=== PATIENT | female | born 1955 | race African-American/Black ===

== ENCOUNTER → 2016-09-13 | Outpatient (CLI) | payer OTHER | LOC: RAD 09:35 | PROVIDERS: ATTEND Physician Assistant | DX: R94.5 Abnormal results of liver function studies (principal) | CPT/HCPCS: 74160 ==

== ENCOUNTER 2017-02-14 19:20 | Emergency (ER) | payer OTHER ==
[2017-02-14] MEDS ORDERED: OXYCODONE-ACETAMINOPHEN 5-325 MG TABLET PO ONE (21:30)
[2017-02-14] MEDS ORDERED: ONDANSETRON 4 MG TAB.RAPDIS PO ONE (21:30)
--- NOTE | 2017-02-14 21:33 | ER Document Report ---
ED General - General Chief Complaint: Leg Pain Stated Complaint: CRAMPING Time Seen by Provider: 02/14/17 21:23 Notes: Patient is a 61-year-old female that comes emergency department for chief complaint of cramps mainly in her legs but also in her arms and across her body. These are sharp and intermittent, she states that she had a cramp across her body so bad earlier today that she vomited. She is treated for gout, hypertension, she states she has an extensive family history of rheumatologic disorders but only has been diagnosed with gout. She denies any shortness of breath, chest pain, fever. TRAVEL OUTSIDE OF THE [place] IN LAST 30 DAYS: No - Related Data Allergies/Adverse Reactions: No Known Allergies Allergy (Verified 02/14/17 20:54) Past Medical History - General Information source: Patient - Social History Smoking Status: Never Smoker Chew tobacco use (# tins/day): No Frequency of alcohol use: Occasional Drug Abuse: Marijuana Family History: Reviewed & Not Pertinent Patient has suicidal ideation: No Patient has homicidal ideation: No - Past Medical History Cardiac Medical History: Reports: Hx Hypertension Denies: Hx Coronary Artery Disease, Hx Heart Attack Pulmonary Medical History: Denies: Hx Asthma, Hx Bronchitis, Hx COPD, Hx Pneumonia Neurological Medical History: Denies: Hx Cerebrovascular Accident, Hx Seizures Renal/ Medical History: Denies: Hx Peritoneal Dialysis Musculoskeltal Medical History: Reports Hx Arthritis - "all" joints Past Surgical History: Reports: Hx Cholecystectomy - Immunizations Hx Diphtheria, Pertussis, Tetanus Vaccination: Yes Review of Systems - Review of Systems Constitutional: No symptoms reported EENT: No symptoms reported Cardiovascular: No symptoms reported Respiratory: No symptoms reported Gastrointestinal: See HPI Genitourinary: No symptoms reported Female Genitourinary: No symptoms reported Musculoskeletal: See HPI Skin: No symptoms reported Hematologic/Lymphatic: No symptoms reported Neurological/Psychological: No symptoms reported Physical Exam - Vital signs Vitals: Temp Pulse Resp BP Pulse Ox 98.4 F 76 18 138/115 H 100 02/14/17 19:27 02/14/17 19:27 02/14/17 19:27 02/14/17 19:27 02/14/17 19:27 Interpretation: Normal - General General appearance: Alert - Patient appears uncomfortable, shifting on the bed - HEENT Head: Normocephalic, Atraumatic Eyes: Normal Conjunctiva: Normal Extraocular movements intact: Yes Eyelashes: Normal Pupils: PERRL Mouth/Lips: Normal Mucous membranes: Normal Pharynx: Normal Neck: Normal - Respiratory Respiratory status: No respiratory distress Chest status: Nontender Breath sounds: Normal Chest palpation: Normal - Cardiovascular Rhythm: Regular Heart sounds: Normal auscultation Murmur: No - Abdominal Inspection: Normal Distension: No distension Bowel sounds: Normal Tenderness: Tender - Is generalized tenderness of the upper abdomen, slightly worse in the right upper quadrant, no guarding or rebound tenderness Organomegaly: No organomegaly - Back Back: Normal, Nontender - Extremities General upper extremity: Normal inspection, Nontender, Normal ROM, Normal strength General lower extremity: Other - There is some generalized tenderness over the thighs bilaterally, no pain out of proportion, no abnormal heat or erythema to the areas, normal joint range of motion of the lower extremities, normal distal neurovascular exam - Neurological Neuro grossly intact: Yes Cognition: Normal Orientation: AAOx4 Somers Coma Scale Eye Opening: Spontaneous Somers Coma Scale Verbal: Oriented Somers Coma Scale Motor: Obeys Commands Terri Coma Scale Total: 15 Speech: Normal Motor strength normal: LUE, RUE, LLE, RLE Sensory: Normal - Skin Skin Temperature: Warm Skin Moisture: Dry Skin Color: Normal Course - Re-evaluation Re-evalutation: Patient appears mildly uncomfortable on examination, however when I tried to lay her back to examine her she appeared to suddenly have sharp cramps in her mid thigh areas which forced her to stand, bend over the sink, and brought her to tears. This did subside and she was able to get back on the bed. Patient has some tenderness in the upper quadrants, more in the right upper quadrant but with no guarding. CBC shows no leukocytosis, ESR is only slightly elevated, I do not appreciate any specific joints that are inflamed or tender, or exactly of the source of patient's pain spasms. Shows elevated bilirubin and alk phos, ultrasound performed of the abdomen, however this does not show any signs of obstruction or any other acute abnormality. Patient is normal. Patient has slightly elevated LFTs, however she states this is already known and she was already referred for workup of this. Patient was given a copy of her ultrasound and labs. Patient asymptomatic on reevaluation, states she is ready to leave that she needs a work note. No evidence of life-threatening infection or acute abdomen, patient will be discharged with some pain management because of her obvious painful spasms which do respond to the medication, patient advised to get an autoimmune workup and also a follow-up with gastroenterology. I discussed return precautions in detail, patient states understanding and agreement - Vital Signs Vital signs: Temp Pulse Resp BP Pulse Ox 98.0 F 65 16 150/81 H 98 02/15/17 01:57 02/15/17 01:57 02/15/17 01:57 02/15/17 01:57 02/15/17 01:57 - Laboratory Result Diagrams: 02/14/17 22:00 02/14/17 22:00 Laboratory results interpreted by me: 02/14/17 02/14/17 02/14/17 22:00 22:00 22:00 MCV 102 H MCH 33.7 H RDW 16.7 H Plt Count 125 L ESR 72 H Sodium 135.9 L Est GFR (Non-Af Amer) 50 L Glucose 155 H Total Bilirubin 2.4 H Direct Bilirubin 1.2 H AST 120 H Alkaline Phosphatase 308 H Total Protein 9.0 H Urine Urobilinogen 4.0 H Discharge - Discharge Clinical Impression: Extremity pain Qualifiers: Extremity pain location: unspecified extremity Qualified Code(s): M79.609 - Pain in unspecified limb Abdominal pain Qualifiers: Abdominal location: generalized Qualified Code(s): R10.84 - Generalized abdominal pain Condition: Stable Disposition: HOME, SELF-CARE Additional Instructions: You ultrasound shows no acute abnormality. Take your ultrasound copy to your appointment, follow up with gastroenterology. Your ESR is slightly elevated, an inflammatory marker. Because of your symptoms and your family history I recommend an autoimmune workup to be performed. Take the stool softener if you take the pain medicine. Return to the ED for any concerning or worsening symptoms - fever, returned or worsening abdominal pain, swelling of the extremities, redness of the extremities, or any other concerning symptoms. Prescriptions: Docusate Sodium [Colace 100 mg Capsule] 100 mg PO DAILY #30 capsule Oxycodone HCl/Acetaminophen [Percocet 5-325 mg Tablet] 1 - 2 tab PO Q4H PRN #20 tablet PRN Reason: Forms: Return to Work Referrals: JAKE LEDEZMA PA-C [Primary Care Provider] - Follow up as needed
[2017-02-14 22:13] LABS: ABSOLUTE BASOPHILS # (AUTO) 0.1 10^3/uL (0.0-0.2); ABSOLUTE LYMPHOCYTES (AUTO) 1.9 10^3/uL (0.5-4.7); ABSOLUTE MONOCYTES (AUTO) 0.7 10^3/uL (0.1-1.4); ABSOLUTE NEUT (AUTO) 5.9 10^3/uL (1.7-8.2); BASOPHILS % (AUTO) 1.5 % (0-2); EOSINOPHILS % (AUTO) 0.3 % (0-6); HEMATOCRIT 38.2 % (36.0-47.0); HEMOGLOBIN 12.7 g/dL (12.0-15.5); HGB HCT DIFFERENCE -0.1; LYMPHOCYTES % (AUTO) 22.4 % (13-45); MEAN CORPUSCULAR HEMOGLOBIN 33.7 pg (27.0-33.4); MEAN CORPUSCULAR HGB CONC 33.1 g/dL (32.0-36.0); MEAN CORPUSCULAR VOLUME 102 fl (80-97); MONOCYTES % (AUTO) 7.9 % (3-13); RED BLOOD COUNT 3.75 10^6/uL (3.72-5.28); RED CELL DISTRIBUTION WIDTH 16.7 % (11.5-14.0); SEGMENTED NEUTROPHILS % (AUTO) 67.9 % (42-78); WHITE BLOOD COUNT 8.7 10^3/uL (4.0-10.5)
[2017-02-14 22:20] LABS: APPEARANCE,URINE CLEAR; BILIRUBIN,URINE NEGATIVE (NEGATIVE); GLUCOSE, URINE NEGATIVE (NEGATIVE); KETONES,URINE NEGATIVE (NEGATIVE); LEUKOCYTE ESTERASE,URINE NEGATIVE (NEGATIVE); NITRITE,URINE NEGATIVE (NEGATIVE); PROTEIN,URINE NEGATIVE (NEGATIVE); URINE SPECIFIC GRAVITY 1.017
[2017-02-14 22:26] LABS: ALANINE AMINOTRANSFERASE 32 U/L (9-52); ALBUMIN 3.6 g/dL (3.5-5.0); ALKALINE PHOSPHATASE 308 U/L (38-126); ANION GAP 14 (5-19); ASPARTATE AMINO TRANSFERASE 120 U/L (14-36); BILIRUBIN,DIRECT 1.2 mg/dL (0.0-0.4); BILIRUBIN,TOTAL 2.4 mg/dL (0.2-1.3); BLOOD UREA NITROGEN 9 mg/dL (7-20); CALCIUM 8.7 mg/dL (8.4-10.2); CARBON DIOXIDE 23 mmol/L (22-30); CHLORIDE 99 mmol/L (98-107); CREATININE RESULT 1.11 mg/dL (0.52-1.25); GLUCOSE 155 mg/dL (75-110); POTASSIUM 3.8 mmol/L (3.6-5.0); SODIUM 135.9 mmol/L (137-145)
[2017-02-14 22:50] LABS: ERYTHROCYTE SEDIMENTATION RATE 72 mm/hr (0-30)
--- NOTE | 2017-02-15 01:21 | RADIOLOGY REPORT (SQ) ---
EXAM DESCRIPTION: U/S ABDOMEN LIMITED W/O DOP COMPLETED DATE/TIME: 02/15/2017 12:34 am REASON FOR STUDY: eval ducts and liver, vomiting, upper abd pain COMPARISON: None. TECHNIQUE: Dynamic and static grayscale images acquired of the abdomen and recorded on PACS. Additio nal selected color Doppler and spectral images recorded. LIMITATIONS: As below. FINDINGS: PANCREAS: Partially obscured. LIVER: No masses. Echotexture normal. 20.4 cm hepatomegaly. LIVER VASCULATURE: Normal directional flow of the main portal vein and hepatic veins. Likely recannu lized umbilical vein. GALLBLADDER: Surgically absent. ULTRASOUND-DETECTED MONTIEL'S SIGN: Not applicable. INTRAHEPATIC DUCTS AND COMMON DUCT: 0.3 cm diameter CBD and intrahepatic ducts normal caliber. No héctor ling defects. INFERIOR VENA CAVA: Normal flow. AORTA: Partially obscured. RIGHT KIDNEY: Normal size. Normal echogenicity. No solid or suspicious masses. No hydronephrosis. No calcifications. PERITONEAL AND RIGHT PLEURAL SPACE: No ascites or effusions. OTHER: No other significant findings. IMPRESSION: No acute findings. Cholecystectomy. Limitation. TECHNICAL DOCUMENTATION: JOB ID: [id number] [employer]- All Rights Reserved
[2017-02-15 02:07] VITALS: BP 150/81
== END 2017-02-15 02:04 | disposition home or self-care (01) ==
LOC: ER 19:20
DX: R10.84 Generalized abdominal pain (principal); M79.606 Pain in leg, unspecified
CPT/HCPCS: 99284; 36415; 83690; 85025; 85652; 80053; 81001; 76705; S0119

== ENCOUNTER 2017-03-07 10:59 | Inpatient (IN) | payer OTHER ==
--- NOTE | 2017-03-07 11:48 | ER Document Report ---
ED Medical Screen (RME) - General TRAVEL OUTSIDE OF THE [place] IN LAST 30 DAYS: No <JUICE SIFUENTES - Last Filed: 03/07/17 11:54> <SIMEON GOLD - Last Filed: 03/07/17 15:00> - General Chief Complaint: Black/Tarry Stools Stated Complaint: WEAKNESS Time Seen by Provider: 03/07/17 11:47 Notes: 61-year-old female patient comes emergency room complaining of dark stools this morning, coughing up small amount of blood this morning. Has felt weak and nearly passing out. Increased heart rate. She also reported facial swelling last night. I have greeted and performed a rapid initial assessment of this patient. A comprehensive ED assessment and evaluation of the patient, analysis of test results and completion of the medical decision making process will be conducted by additional ED providers. (JUICE SIFUENTES) - Related Data Allergies/Adverse Reactions: No Known Allergies Allergy (Verified 03/07/17 11:10) Past Medical History - Past Medical History Cardiac Medical History: Reports: Hx Hypertension Denies: Hx Coronary Artery Disease, Hx Heart Attack Pulmonary Medical History: Denies: Hx Asthma, Hx Bronchitis, Hx COPD, Hx Pneumonia Neurological Medical History: Denies: Hx Cerebrovascular Accident, Hx Seizures Renal/ Medical History: Denies: Hx Peritoneal Dialysis Musculoskeltal Medical History: Reports Hx Arthritis - "all" joints Past Surgical History: Reports: Hx Cholecystectomy - Immunizations Hx Diphtheria, Pertussis, Tetanus Vaccination: Yes <JUICE SIFUENTES - Last Filed: 03/07/17 11:54> - General Information source: Patient - Social History Cigarette use (# per day): No Chew tobacco use (# tins/day): No Frequency of alcohol use: None Drug Abuse: None Lives with: Family Family history: Reviewed & Not Pertinent - Past Medical History Cardiac Medical History: Reports: Hx Hypertension Musculoskeltal Medical History: Reports Hx Arthritis Psychiatric Medical History: Reports: None Past Surgical History: Reports: Hx Cholecystectomy <SIMEON GOLD - Last Filed: 03/07/17 15:00> Review of Systems - Review of Systems Constitutional: Weakness EENT: No symptoms reported Cardiovascular: No symptoms reported Respiratory: No symptoms reported Gastrointestinal: See HPI Genitourinary: No symptoms reported Female Genitourinary: No symptoms reported Musculoskeletal: No symptoms reported Skin: No symptoms reported Neurological/Psychological: Weakness <SIMEON GOLD - Last Filed: 03/07/17 15:00> Physical Exam - Vital signs Interpretation: Tachycardic - General General appearance: Appears well, Alert In distress: None - HEENT Head: Normocephalic Eyes: Pale conjunctiva Ears: Normal Nasal: Normal Mouth/Lips: Normal Mucous membranes: Normal Pharynx: Normal Neck: Normal - Respiratory Respiratory status: No respiratory distress Breath sounds: Normal - Cardiovascular Rhythm: Regular Heart sounds: Normal auscultation Murmur: No - Abdominal Inspection: Normal Bowel sounds: Normal Tenderness: Nontender - Back Back: Normal - Extremities General upper extremity: Normal inspection General lower extremity: Normal inspection - Neurological Neuro grossly intact: Yes Cognition: Normal Orientation: AAOx4 - Psychological Associated symptoms: Normal affect, Normal mood - Skin Skin Temperature: Warm Skin Moisture: Dry Skin Color: Normal Skin Turgor: Elastic <SIMEON GOLD - Last Filed: 03/07/17 15:00> - Vital signs Vitals: Temp Pulse Resp BP Pulse Ox 98.7 F 111 H 20 121/72 97 03/07/17 11:07 03/07/17 11:07 03/07/17 11:07 03/07/17 11:07 03/07/17 11:07 Course - Laboratory Result Diagrams: 03/07/17 12:14 03/07/17 13:25 - Consults DR. BARTLETT Time consulted: 14:48 Consulted provider: will see as inpatient DR. FAULKNER Time consulted: 14:52 Consulted provider: will come to ER <SIMEON GOLD - Last Filed: 03/07/17 15:00> - Vital Signs Vital signs: Temp Pulse Resp BP Pulse Ox 98.7 F 111 H 20 121/72 97 03/07/17 11:07 03/07/17 11:07 03/07/17 11:07 03/07/17 11:07 03/07/17 11:07 - Laboratory Laboratory results interpreted by me: 03/07/17 03/07/17 03/07/17 12:14 12:14 13:25 WBC 13.7 H RBC 2.70 L Hgb 9.0 L Hct 27.2 L MCV 101 H RDW 18.0 H Absolute Neutrophils 8.9 H Chloride 108 H Carbon Dioxide 19 L BUN 49 H Creatinine 1.32 H Est GFR ( Amer) 49 L Est GFR (Non-Af Amer) 41 L Glucose 122 H Total Bilirubin 1.9 H Direct Bilirubin 0.8 H AST 64 H Albumin 2.8 L Urine Blood MODERATE H Urine Urobilinogen 2.0 H - Consults DR. BARTLETT Reason for consultation: 03/07/17 14:53 AGREES TO SEE IN CONSULTATION (SIMEON GOLD) Doctor's Discharge <JUICE SIFUENTES - Last Filed: 03/07/17 11:54> <SIMEON GOLD - Last Filed: 03/07/17 15:00> - Discharge Clinical Impression: Gastrointestinal bleed Qualifiers: GI bleed type/associated pathology: melena Qualified Code(s): K92.1 - Melena Anemia Qualifiers: Anemia type: iron deficiency Iron deficiency anemia type: chronic blood loss Qualified Code(s): D50.0 - Iron deficiency anemia secondary to blood loss ( chronic) Condition: Good Disposition: ADMITTED OBSERVATION
[2017-03-07] MEDS ORDERED: NORMAL SALINE 1000 ML 1,000 ML IV ONE ×2 (11:52→15:43)
[2017-03-07 12:48] LABS: ABSOLUTE BASOPHILS # (AUTO) 0.1 10^3/uL (0.0-0.2); ABSOLUTE LYMPHOCYTES (AUTO) 3.4 10^3/uL (0.5-4.7); ABSOLUTE MONOCYTES (AUTO) 1.3 10^3/uL (0.1-1.4); ABSOLUTE NEUT (AUTO) 8.9 10^3/uL (1.7-8.2); BASOPHILS % (AUTO) 0.7 % (0-2); EOSINOPHILS % (AUTO) 0.3 % (0-6); HEMATOCRIT 27.2 % (36.0-47.0); HGB HCT DIFFERENCE -0.2; LYMPHOCYTES % (AUTO) 24.8 % (13-45); MEAN CORPUSCULAR HEMOGLOBIN 33.2 pg (27.0-33.4); MEAN CORPUSCULAR HGB CONC 32.9 g/dL (32.0-36.0); MEAN CORPUSCULAR VOLUME 101 fl (80-97); MONOCYTES % (AUTO) 9.3 % (3-13); SEGMENTED NEUTROPHILS % (AUTO) 64.9 % (42-78); WHITE BLOOD COUNT 13.7 10^3/uL (4.0-10.5)
[2017-03-07 13:24] LABS: APPEARANCE,URINE SLIGHTLY-CLOUDY; BILIRUBIN,URINE NEGATIVE (NEGATIVE); GLUCOSE, URINE NEGATIVE (NEGATIVE); KETONES,URINE NEGATIVE (NEGATIVE); LEUKOCYTE ESTERASE,URINE NEGATIVE (NEGATIVE); NITRITE,URINE NEGATIVE (NEGATIVE); PROTEIN,URINE NEGATIVE (NEGATIVE); URINE SPECIFIC GRAVITY 1.025
[2017-03-07 13:26] LABS: URINE BARBITURATES SCREEN NEGATIVE; URINE METHADONE SCREEN NEGATIVE; URINE OPIATES LOW NEGATIVE; URINE PHENCYCLIDINE SCREEN NEGATIVE
[2017-03-07 14:03] LABS: ALANINE AMINOTRANSFERASE 23 U/L (9-52); ALBUMIN 2.8 g/dL (3.5-5.0); ALKALINE PHOSPHATASE 126 U/L (38-126); ANION GAP 12 (5-19); ASPARTATE AMINO TRANSFERASE 64 U/L (14-36); BILIRUBIN,DIRECT 0.8 mg/dL (0.0-0.4); BILIRUBIN,TOTAL 1.9 mg/dL (0.2-1.3); BLOOD UREA NITROGEN 49 mg/dL (7-20); CALCIUM 8.6 mg/dL (8.4-10.2); CARBON DIOXIDE 19 mmol/L (22-30); CHLORIDE 108 mmol/L (98-107); CREATININE RESULT 1.32 mg/dL (0.52-1.25); GLUCOSE 122 mg/dL (75-110); POTASSIUM 4.3 mmol/L (3.6-5.0); SODIUM 139.1 mmol/L (137-145); TOTAL PROTEIN 6.7 g/dL (6.3-8.2)
[2017-03-07 14:04] LABS: ALCOHOL < 10 mg/dL (NONE DETECTED)
--- NOTE | 2017-03-07 15:12 | ER Document Report ---
ED GI Bleed / Rectal Pain - General Chief Complaint: Black/Tarry Stools Stated Complaint: WEAKNESS Time Seen by Provider: 03/07/17 11:47 Mode of Arrival: Ambulatory Information source: Patient TRAVEL OUTSIDE OF THE [place] IN LAST 30 DAYS: No - HPI Patient complains to provider of: Dark/tarry stools Onset: This morning Timing/Duration: Sudden Quality of pain: Cramping - slight Severity of symptoms: Mild Dark Stools: Black Rectal foreign body: No Use of: ASA, NSAIDS. denies: Warfarin, Plavix, Lovenox, Pradaxa, ETOH Associated symptoms: Fainting/dizzy/lightheade. denies: Chest pain Exacerbated by: Standing Relieved by: Denies Similar symptoms previously: No Recently seen / treated by doctor: No - Related Data Allergies/Adverse Reactions: No Known Allergies Allergy (Verified 03/07/17 11:10) Past Medical History - General Information source: Patient - Social History Smoking Status: Unknown if Ever Smoked Cigarette use (# per day): No Chew tobacco use (# tins/day): No Frequency of alcohol use: None Drug Abuse: None Lives with: Family Family History: Reviewed & Not Pertinent - Past Medical History Cardiac Medical History: Reports: Hx Hypertension Denies: Hx Coronary Artery Disease, Hx Heart Attack Pulmonary Medical History: Denies: Hx Asthma, Hx Bronchitis, Hx COPD, Hx Pneumonia Neurological Medical History: Denies: Hx Cerebrovascular Accident, Hx Seizures Renal/ Medical History: Denies: Hx Peritoneal Dialysis Musculoskeltal Medical History: Reports Hx Arthritis Psychiatric Medical History: Reports: None Past Surgical History: Reports: Hx Cholecystectomy - Immunizations Hx Diphtheria, Pertussis, Tetanus Vaccination: Yes Review of Systems - Review of Systems Constitutional: See HPI EENT: No symptoms reported Cardiovascular: See HPI Respiratory: No symptoms reported. denies: Short of breath Gastrointestinal: See HPI Genitourinary: No symptoms reported Female Genitourinary: No symptoms reported Musculoskeletal: No symptoms reported Skin: No symptoms reported Neurological/Psychological: No symptoms reported Physical Exam - Vital signs Vitals: Temp Pulse Resp BP Pulse Ox 98.7 F 111 H 20 121/72 97 03/07/17 11:07 03/07/17 11:07 03/07/17 11:07 03/07/17 11:07 03/07/17 11:07 Interpretation: Tachycardic. No: Hypotensive, Tachypneic - General General appearance: Appears well, Alert In distress: None - HEENT Head: Normocephalic Eyes: Pale conjunctiva Ears: Normal Nasal: Normal Mouth/Lips: Normal Mucous membranes: Normal Pharynx: Normal Neck: Normal - Respiratory Respiratory status: No respiratory distress Breath sounds: Normal - Cardiovascular Rhythm: Regular Heart sounds: Normal auscultation Murmur: No - Abdominal Inspection: Normal Distension: No distension Bowel sounds: Normal - Back Back: Normal - Extremities General upper extremity: Normal inspection General lower extremity: Normal inspection. No: Edema - Neurological Neuro grossly intact: Yes Cognition: Normal Orientation: AAOx4 - Psychological Associated symptoms: Normal affect, Normal mood - Skin Skin Temperature: Warm Skin Moisture: Dry Skin Color: Normal Skin Turgor: Elastic Course - Vital Signs Vital signs: Temp Pulse Resp BP Pulse Ox 98.7 F 111 H 20 121/72 97 03/07/17 11:07 03/07/17 11:07 03/07/17 11:07 03/07/17 11:07 03/07/17 11:07 - Laboratory Result Diagrams: 03/07/17 12:14 03/07/17 13:25 Laboratory results interpreted by me: 03/07/17 03/07/17 03/07/17 12:14 12:14 13:25 WBC 13.7 H RBC 2.70 L Hgb 9.0 L Hct 27.2 L MCV 101 H RDW 18.0 H Absolute Neutrophils 8.9 H Chloride 108 H Carbon Dioxide 19 L BUN 49 H Creatinine 1.32 H Est GFR ( Amer) 49 L Est GFR (Non-Af Amer) 41 L Glucose 122 H Total Bilirubin 1.9 H Direct Bilirubin 0.8 H AST 64 H Albumin 2.8 L Urine Blood MODERATE H Urine Urobilinogen 2.0 H - Consults DR. BARTLETT Time consulted: 14:48 Reason for consultation: 03/07/17 15:12 AGREES TO SEE IN CONSULTATION Consulted provider: will see as inpatient DR. FAULKNER Time consulted: 14:52 Consulted provider: will come to ER Discharge - Discharge Clinical Impression: Gastrointestinal bleed Qualifiers: GI bleed type/associated pathology: melena Qualified Code(s): K92.1 - Melena Anemia Qualifiers: Anemia type: iron deficiency Iron deficiency anemia type: chronic blood loss Qualified Code(s): D50.0 - Iron deficiency anemia secondary to blood loss ( chronic) Condition: Good Disposition: ADMITTED OBSERVATION Referrals: JAKE LEDEZMA PA-C [Primary Care Provider] - Follow up as needed
[2017-03-07] MEDS ORDERED: PANTOPRAZOLE SODIUM 80 MG in NORMAL SALINE 100 ML IV ONE (15:42)
[2017-03-07] MEDS ORDERED: SUCRALFATE SUSP 1 GM/10 ML UDCUP PO ONE (15:42)
[2017-03-07] MEDS ORDERED: ACETAMINOPHEN 650 MG SUPP.RECT PR PRN (15:46)
[2017-03-07] MEDS ORDERED: ONDANSETRON HCL INJ/PF 4 MG/2 ML SDV IV PRN (15:46)
--- NOTE | 2017-03-07 16:28 | PDOC H&P ---
History of Present Illness Admission Date/PCP: JAKE LEDEZMA PA-C History of Present Illness: NAVEED MONDRAGON is a 61 year old female medical history of hypertension who presents to the emergency department with presyncope. Patient reports that she woke up not feeling very well and went to the bathroom and thereupon had black stool. She began to feel weak and dizzy with subsequent loss of consciousness. Patient also reports one episode of emesis which did have blood streaking in it. Patient reports that she has been taking ibuprofen 800 mg 1-2 tablets 2-3 times per day. Patient has also been taking low-dose aspirin. She denies any use of [id number] NSAIDs or additional aspirin usage. Patient does report occasional drinking on the weekends. Had a prior colonoscopy with Dr. Ibrahim. Patient is found to be anemic and mildly hypotensive with acute GI bleed. Past Medical History Cardiac Medical History: Reports: Hypertension Denies: Coronary Artery Disease, Myocardial Infarction Pulmonary Medical History: Denies: Asthma, Bronchitis, Chronic Obstructive Pulmonary Disease (COPD), Pneumonia Neurological Medical History: Denies: Seizures Musculoskeltal Medical History: Reports: Arthritis Psychiatric Medical History: Reports: None, Tobacco Dependency Hematology: Denies: Anemia Past Surgical History Past Surgical History: Reports: Cholecystectomy Social History Lives with: Family Smoking Status: Unknown if Ever Smoked Frequency of Alcohol Use: Social Amount of Alcoholic Beverages Per Day: weekends, also chew 1/2 can per day Hx Recreational Drug Use: Yes Drugs: Marijuana Hx Prescription Drug Abuse: No - Advance Directive Resuscitation Status: Full Code Surrogate healthcare decision maker:: Tenisha Leannan, sister Family History Family History: Malignancy Parental Family History Reviewed: Yes Children Family History Reviewed: Yes Sibling(s) Family History Reviewed.: Yes Medication/Allergy Home Medications: Olmesartan Medoxomil [Benicar] 1 tab PO DAILY 03/23/13 Estrogens, Conjugated [Premarin] 0.625 mg PO DAILY 09/17/13 Hydroxyzine HCl 25 mg PO QHS 09/17/13 Acetaminophen with Codeine [Tylenol with Codeine #3 Tablet] 1 Q4 PRN 09/24/13 Oxycodone HCl 5 mg PO Q6H #15 tablet 12/08/13 Docusate Sodium [Colace 100 mg Capsule] 100 mg PO DAILY #30 capsule 06/15/17 Oxycodone HCl/Acetaminophen [Percocet 5-325 mg Tablet] 1 - 2 tab PO Q4H PRN #20 tablet 02/15/17 Allergies/Adverse Reactions: No Known Allergies Allergy (Verified 03/07/17 11:10) Review of Systems Constitutional: ABSENT: chills, fever(s), headache(s), weight gain, weight loss Eyes: ABSENT: visual disturbances Ears: ABSENT: hearing changes Nose, Mouth, and Throat: PRESENT: mouth pain, other - Swelling facial Cardiovascular: ABSENT: chest pain, dyspnea on exertion, edema, orthropnea, palpitations Respiratory: ABSENT: cough, hemoptysis Gastrointestinal: PRESENT: abdominal pain, hematemesis, melena, nausea, vomiting. ABSENT: constipation, diarrhea, hematochezia Genitourinary: ABSENT: dysuria, hematuria Musculoskeletal: PRESENT: back pain. ABSENT: joint swelling Integumentary: ABSENT: rash, wounds Neurological: ABSENT: abnormal gait, abnormal speech, confusion, dizziness, focal weakness, syncope Psychiatric: ABSENT: anxiety, depression, homidical ideation, suicidal ideation Endocrine: ABSENT: cold intolerance, heat intolerance, polydipsia, polyuria Hematologic/Lymphatic: ABSENT: easy bleeding, easy bruising Physical Exam Vital Signs: Temp Pulse Resp BP Pulse Ox 98.7 F 111 H 19 146/92 H 97 03/07/17 11:07 03/07/17 11:07 03/07/17 15:14 03/07/17 15:48 03/07/17 11:07 Intake & Output 03/06/17 03/07/17 03/08/17 06:59 06:59 06:59 Weight 75 kg General appearance: PRESENT: mild distress, obese, well-developed, well- nourished Head exam: PRESENT: atraumatic, normocephalic, other - bilateral parotid swelling Eye exam: PRESENT: conjunctiva pale, EOMI, scleral icterus. ABSENT: conjunctival injection, PERRLA - Left eye sluggish with cataract Ear exam: PRESENT: normal external ear exam Mouth exam: PRESENT: moist, tongue midline Neck exam: PRESENT: lymphadenopathy, thyromegaly. ABSENT: carotid bruit, JVD, tenderness, tracheal deviation Respiratory exam: PRESENT: clear to auscultation raina, symmetrical, tachypnea, unlabored. ABSENT: accessory muscle use, chest wall tenderness, crackles, prolonged expiratory phas, rales, rhonchi, wheezes Cardiovascular exam: PRESENT: RRR, +S1, +S2, tachycardia. ABSENT: diastolic murmur, gallop, rubs, systolic murmur Pulses: PRESENT: normal dorsalis pedis pul Vascular exam: PRESENT: normal capillary refill GI/Abdominal exam: PRESENT: normal bowel sounds, soft, tenderness - LUQ. ABSENT : distended, firm, guarding, mass, Monterroso's sign, organolmegaly, rebound, rigid Rectal exam: PRESENT: deferred, heme (+) stool Extremities exam: PRESENT: full ROM. ABSENT: calf tenderness, clubbing, pedal edema Neurological exam: PRESENT: alert, awake, oriented to person, oriented to place , oriented to time, oriented to situation, CN II-XII grossly intact. ABSENT: motor sensory deficit Psychiatric exam: PRESENT: flat affect, normal mood. ABSENT: homicidal ideation , suicidal ideation Skin exam: PRESENT: dry, intact, warm. ABSENT: cyanosis, rash Results Laboratory Results: 03/07/17 12:14 03/07/17 13:25 03/07/17 03/07/17 03/07/17 12:14 12:14 12:14 WBC 13.7 H RBC 2.70 L Hgb 9.0 L Hct 27.2 L MCV 101 H MCH 33.2 MCHC 32.9 RDW 18.0 H Plt Count 213 Seg Neutrophils % 64.9 Lymphocytes % 24.8 Monocytes % 9.3 Eosinophils % 0.3 Basophils % 0.7 Absolute Neutrophils 8.9 H Absolute Lymphocytes 3.4 Absolute Monocytes 1.3 Absolute Eosinophils 0.0 Absolute Basophils 0.1 Sodium Cancelled Potassium Cancelled Chloride Cancelled Carbon Dioxide Cancelled Anion Gap Cancelled BUN Cancelled Creatinine Cancelled Est GFR ( Amer) Cancelled Est GFR (Non-Af Amer) Cancelled Glucose Cancelled Calcium Cancelled Total Bilirubin Cancelled AST Cancelled ALT Cancelled Alkaline Phosphatase Cancelled Total Protein Cancelled Albumin Cancelled Urine Color Urine Appearance Urine pH Ur Specific [place] Urine Protein Urine Glucose (UA) Urine Ketones Urine Blood Urine Nitrite Ur Leukocyte Esterase Urine WBC (Auto) Urine RBC (Auto) Stool Occult Blood POSITIVE Blood Type Antibody Screen 03/07/17 03/07/17 03/07/17 12:14 12:14 13:25 WBC RBC Hgb Hct MCV MCH MCHC RDW Plt Count Seg Neutrophils % Lymphocytes % Monocytes % Eosinophils % Basophils % Absolute Neutrophils Absolute Lymphocytes Absolute Monocytes Absolute Eosinophils Absolute Basophils Sodium 139.1 Potassium 4.3 Chloride 108 H Carbon Dioxide 19 L Anion Gap 12 BUN 49 H Creatinine 1.32 H Est GFR ( Amer) 49 L Est GFR (Non-Af Amer) 41 L Glucose 122 H Calcium 8.6 Total Bilirubin 1.9 H AST 64 H ALT 23 Alkaline Phosphatase 126 Total Protein 6.7 Albumin 2.8 L Urine Color YELLOW Urine Appearance SLIGHTLY-CLOUDY Urine pH 5.0 Ur Specific [place] 1.025 Urine Protein NEGATIVE Urine Glucose (UA) NEGATIVE Urine Ketones NEGATIVE Urine Blood MODERATE H Urine Nitrite NEGATIVE Ur Leukocyte Esterase NEGATIVE Urine WBC (Auto) 2 Urine RBC (Auto) 1 Stool Occult Blood Blood Type O NEGATIVE Antibody Screen NEGATIVE Assessment & Plan - Diagnosis (1) Gastrointestinal bleed Qualifiers: GI bleed type/associated pathology: melena Qualified Code(s): K92.1 - Melena Is this a current diagnosis for this admission?: YesPlan: Secondary to gastritis plus or minus pill esophagitis with reported excessive use of ibuprofen. Concern for possible additional alcohol abuse as patient has had a prior elevated MCV with low platelets. She does report drinking on the weekends. Patient on IV Protonix and oral Carafate. Patient is n.p.o. with IV fluids going pending upper endoscopy by Dr. Ibrahim. (2) Acute blood loss anemia Is this a current diagnosis for this admission?: YesPlan: Type and Screen patient check H&H every 6h Transfuse patient is she falls below 8 (3) Parotid swelling Is this a current diagnosis for this admission?: YesPlan: Upon chart review, patient had a prior elevated ESR of 72 and reports arthritis in multiple sites. At this time will send THAO, Sjogren's antibodies, Rhematoid Factor, and complement. I recommend and have expressed to the patient that this will require an outpatient evaluation including if indicated evaluation for sarcoid, malignancy , viral infection including HIV. This could also be the result of occult alcoholism. (4) HTN (hypertension) Qualifiers: Hypertension type: essential hypertension Qualified Code(s): I10 - Essential (primary) hypertension Is this a current diagnosis for this admission?: YesPlan: Hold antihypertensives prn hydralazine for sbp>180 Having taken her medication today and in the emergency department is slightly hypotensive (5) Hypothyroid Qualifiers: Hypothyroidism type: unspecified Qualified Code(s): E03.9 - Hypothyroidism, unspecified Is this a current diagnosis for this admission?: YesPlan: Check TSH (6) Actinic keratosis of left cheek Is this a current diagnosis for this admission?: YesPlan: Recommend outpatient follow-up with dermatology (7) Tobacco abuse Is this a current diagnosis for this admission?: YesPlan: Encourage cessation - Time Time Spent: 50 to 70 Minutes Medications reviewed and adjusted accordingly: Yes Anticipated discharge: Home - Inpatient Certification Based on my medical assessment, after consideration of the patient's comorbidities, presenting symptoms, or acuity I expect that the services needed warrant INPATIENT care.: Yes I certify that my determination is in accordance with my understanding of Medicare's requirements for reasonable and necessary INPATIENT services [42 CFR 412.3e].: Yes Medical Necessity: Need For IV Fluids, Need For Continuous Telemetry Monitoring Post Hospital Care: 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
[2017-03-07 16:29] LABS: PROTHROMBIN TIME 15.9 SEC (11.4-15.4)
[2017-03-07 16:30] LABS: PARTIAL THROMBOPLASTIN TIME 35.3 SEC (23.5-35.8)
[2017-03-07 18:01] LABS: HEMATOCRIT 26.1 % (36.0-47.0); HEMOGLOBIN 8.5 g/dL (12.0-15.5); HGB HCT DIFFERENCE -0.6; MEAN CORPUSCULAR HGB CONC 32.4 g/dL (32.0-36.0); MEAN CORPUSCULAR VOLUME 102 fl (80-97); RED BLOOD COUNT 2.56 10^6/uL (3.72-5.28); WHITE BLOOD COUNT 14.7 10^3/uL (4.0-10.5)
[2017-03-07] MEDS: NORMAL SALINE 100 ML with PANTOPRAZOLE SODIUM 80 MG IV PRN ×2 (18:18)
[2017-03-07] MEDS: NORMAL SALINE 500 ML with OCTREOTIDE ACETATE 500 MCG IV PRN ×2 (18:56)
[2017-03-07] MEDS ORDERED: OCTREOTIDE ACETATE INJ/PF 100 MCG/1 ML SDV IV ONE (19:00)
[2017-03-07] MEDS: NORMAL SALINE 1000 ML 1,000 ML IV PRN (20:52)
[2017-03-07 23:02] LABS: FOLATE 6.4 ng/mL (>2.76)
[2017-03-08 00:35] LABS: HEMATOCRIT 21.8 % (36.0-47.0); HGB HCT DIFFERENCE -0.5; MEAN CORPUSCULAR HEMOGLOBIN 32.8 pg (27.0-33.4); MEAN CORPUSCULAR HGB CONC 32.4 g/dL (32.0-36.0); MEAN CORPUSCULAR VOLUME 101 fl (80-97); RED BLOOD COUNT 2.16 10^6/uL (3.72-5.28); RED CELL DISTRIBUTION WIDTH 17.4 % (11.5-14.0); WHITE BLOOD COUNT 11.1 10^3/uL (4.0-10.5)
[2017-03-08 00:36] LABS: HEMOGLOBIN 7.1 g/dL (12.0-15.5)
[2017-03-08] MEDS: NORMAL SALINE 100 ML with PANTOPRAZOLE SODIUM 80 MG IV PRN ×4 (01:25→12:13)
[2017-03-08] MEDS: NORMAL SALINE 1000 ML 1,000 ML IV PRN ×3 (03:48→20:22)
[2017-03-08] MEDS ORDERED: LORAZEPAM INJ 2 MG/1 ML VIAL IV PRN (09:08)
[2017-03-08 10:17] LABS: ABSOLUTE BASOPHILS # (AUTO) 0.1 10^3/uL (0.0-0.2); ABSOLUTE EOSINOPHILS # (AUTO) 0.1 10^3/uL (0.0-0.6); ABSOLUTE LYMPHOCYTES (AUTO) 2.6 10^3/uL (0.5-4.7); ABSOLUTE MONOCYTES (AUTO) 0.8 10^3/uL (0.1-1.4); ABSOLUTE NEUT (AUTO) 4.6 10^3/uL (1.7-8.2); BASOPHILS % (AUTO) 0.7 % (0-2); EOSINOPHILS % (AUTO) 1.4 % (0-6); HEMATOCRIT 27.9 % (36.0-47.0); HGB HCT DIFFERENCE -0.3; LYMPHOCYTES % (AUTO) 31.4 % (13-45); MEAN CORPUSCULAR HEMOGLOBIN 31.8 pg (27.0-33.4); MONOCYTES % (AUTO) 10.1 % (3-13); RED CELL DISTRIBUTION WIDTH 21.7 % (11.5-14.0); SEGMENTED NEUTROPHILS % (AUTO) 56.4 % (42-78); WHITE BLOOD COUNT 8.2 10^3/uL (4.0-10.5)
[2017-03-08 10:25] LABS: HEMOGLOBIN 9.2 g/dL (12.0-15.5)
[2017-03-08 10:26] LABS: MEAN CORPUSCULAR VOLUME 96 fl (80-97)
[2017-03-08 10:29] LABS: ALANINE AMINOTRANSFERASE 24 U/L (9-52); ALBUMIN 2.6 g/dL (3.5-5.0); ALKALINE PHOSPHATASE 94 U/L (38-126); ANION GAP 9 (5-19); ASPARTATE AMINO TRANSFERASE 59 U/L (14-36); BILIRUBIN,DIRECT 0.6 mg/dL (0.0-0.4); BILIRUBIN,TOTAL 1.4 mg/dL (0.2-1.3); BLOOD UREA NITROGEN 34 mg/dL (7-20); CARBON DIOXIDE 18 mmol/L (22-30); CHLORIDE 113 mmol/L (98-107); CREATININE RESULT 1.28 mg/dL (0.52-1.25); GLUCOSE 124 mg/dL (75-110); POTASSIUM 4.1 mmol/L (3.6-5.0); SODIUM 140.2 mmol/L (137-145); TOTAL PROTEIN 6.1 g/dL (6.3-8.2)
[2017-03-08] MEDS: THIAMINE HCL 100 MG, FOLIC ACID 1 MG in NORMAL SALINE 50 ML IV SCH (12:12)
[2017-03-08] MEDS: NORMAL SALINE 500 ML with OCTREOTIDE ACETATE 500 MCG IV PRN ×2 (12:12)
--- NOTE | 2017-03-08 13:50 | PDOC PROGRESS REPORT ---
Subjective Progress Note for:: 03/08/17 Subjective:: Patient continues to have melanotic stools. Patient denies chest pain, shortness of breath, nausea, vomiting, fever, chills , headache, constipation, new onset weakness. Reports that she drinks heavily on the weekend "more than she should". Patient denies alcohol withdrawal seizures, shakes, or other withdrawal symptoms when she has stopped drinking in the past. Physical Exam Vital Signs: Temp Pulse Resp BP Pulse Ox 98.1 F 73 20 133/79 H 98 03/08/17 06:27 03/08/17 06:27 03/08/17 06:27 03/08/17 06:27 03/08/17 06:27 Intake & Output 03/07/17 03/08/17 03/09/17 06:59 06:59 06:59 Intake Total 2500 Output Total 600 Balance 1900 Weight 81.3 kg Exam: GENERAL: No acute distress HEENT: Notable parotid swelling bilaterally, Conjunctiva clear, nonicteric, moist mucous membranes, no JVD, midline trachea RESPIRATORY: CTAB CARDIAC: Regular rate and rhythm, no murmurs/gallops/rubs ABDOMEN: Soft, nondistended, mildly tender to palpation LUQ, positive bowel sounds, no rebound, no guarding EXTREMETIES: No edema, cyanosis, clubbing NEURO: CN 2-12 grossly intact without focal deficits, A+Ox3 SKIN: No rash, palmar erythema Results Laboratory Results: 03/08/17 00:12 03/07/17 03/07/17 03/07/17 17:45 17:45 17:45 WBC 14.7 H RBC 2.56 L Hgb 8.5 L Hct 26.1 L MCV 102 H MCH 33.0 MCHC 32.4 RDW 18.0 H Plt Count 136 L Vitamin B12 354.0 Folate 6.40 TSH 2.96 03/08/17 00:12 WBC 11.1 H RBC 2.16 L Hgb 7.1 L Hct 21.8 L MCV 101 H MCH 32.8 MCHC 32.4 RDW 17.4 H Plt Count 123 L Vitamin B12 Folate TSH Assessment & Plan - Diagnosis (1) Gastrointestinal bleed Qualifiers: GI bleed type/associated pathology: melena Qualified Code(s): K92.1 - Melena Is this a current diagnosis for this admission?: YesPlan: Secondary to gastritis plus or minus pill esophagitis with reported excessive use of ibuprofen. Concern for possible variceal bleed as patient has had a prior elevated MCV with low platelets. She does report excessive drinking on the weekends. Patient on IV Protonix and oral Carafate. Patient is n.p.o. with IV fluids going pending upper endoscopy by Dr. Ibrahim. (2) Acute blood loss anemia Is this a current diagnosis for this admission?: YesPlan: Type and Screen patient check H&H every 6h Patient currently being transfused 2uPRBC (3) Parotid swelling Is this a current diagnosis for this admission?: YesPlan: Upon chart review, patient had a prior elevated ESR of 72 and reports arthritis in multiple sites. At this time will send THAO, Sjogren's antibodies, Rhematoid Factor, and complement. I recommend and have expressed to the patient that this will require an outpatient evaluation including if indicated evaluation for sarcoid, malignancy , viral infection including HIV. This could also be the result of occult alcoholism. (4) HTN (hypertension) Qualifiers: Hypertension type: essential hypertension Qualified Code(s): I10 - Essential (primary) hypertension Is this a current diagnosis for this admission?: YesPlan: Hold antihypertensives prn hydralazine for sbp>180 (5) Hypothyroid Qualifiers: Hypothyroidism type: unspecified Qualified Code(s): E03.9 - Hypothyroidism, unspecified Is this a current diagnosis for this admission?: YesPlan: TSH is normal (6) Actinic keratosis of left cheek Is this a current diagnosis for this admission?: YesPlan: Recommend outpatient follow-up with dermatology (7) Tobacco abuse Is this a current diagnosis for this admission?: YesPlan: Encourage cessation (8) Alcohol abuse Is this a current diagnosis for this admission?: YesPlan: Place on thiamine, folic acid, mv, and prn ativan. - Time Time Spent with patient: 25-34 minutes Medications reviewed and adjusted accordingly: Yes Anticipated discharge: Home Within: within 48 hours, within 72 hours
[2017-03-08] MEDS ORDERED: ONDANSETRON HCL INJ/PF 4 MG/2 ML SDV IV PRN (15:06)
[2017-03-08] MEDS ORDERED: NALOXONE HCL INJ/PF 0.4 MG/1 ML SDV ONE (16:54)
[2017-03-08] MEDS ORDERED: MIDAZOLAM 2 MG/2 ML INJ ONE (16:54)
[2017-03-08] MEDS ORDERED: FENTANYL CITRATE INJ/PF 100 MCG/2 ML AMPUL ONE (16:55)
[2017-03-08] MEDS ORDERED: FLUMAZENIL INJ 0.5 MG/5 ML VIAL IV ONE (16:55)
[2017-03-08] MEDS ORDERED: EPINEPHRINE INJ 1 MG/10 ML DISP.SYRIN ONE (16:55)
[2017-03-08] MEDS ORDERED: GLUCAGON,HUMAN RECOMB 1 MG INJ ONE (16:55)
[2017-03-08] MEDS ORDERED: ONDANSETRON HCL INJ/PF 4 MG/2 ML SDV ONE (16:56)
[2017-03-08] MEDS: MIDAZOLAM 2 MG/2 ML INJ ONE ×2 (17:47→18:00)
--- NOTE | 2017-03-08 17:50 | PDOC CONSULTATION ---
Consultation Consult Date: 03/07/17 History of Present Illness Admission Date/PCP: 03/07/17 15:46 JAKE LEDEZMA PA-C History of Present Illness: This is a 61-year-old patient who was admitted to the emergency room with dizziness, melena and anemia. She had a couple of black stools at home and also to rule up some bright red blood once. She takes ibuprofen almost every day and low-dose aspirin. She has also been drinking many days a week. She has a history of alcohol abuse and a previous CAT scan in September of this year showed hepatomegaly with slight nodular margins and recanalized umbilical vein. There was also suspicion for small collateral vessels. She was supposed to have an EGD to rule out esophageal varices a few months ago but she canceled. On 02/14/2017 her hemoglobin was 12.7 but on admission on 03/07/2017 it was 9. It dropped down to 7 and she has since received 2 units of blood. She was started on octreotide infusion. Past Medical History Cardiac Medical History: Reports: Hypertension Denies: Coronary Artery Disease, Myocardial Infarction Pulmonary Medical History: Denies: Asthma, Bronchitis, Chronic Obstructive Pulmonary Disease (COPD), Pneumonia Neurological Medical History: Denies: Seizures GI Medical History: Reports: Cirrhosis, Gastroesophageal Reflux Disease GI History Note: Alcohol abuse, colon polyps and hemorrhoids Musculoskeltal Medical History: Reports: Arthritis Psychiatric Medical History: Reports: None, Depression, Tobacco Dependency Hematology: Denies: Anemia Past Surgical History Past Surgical History: Colonoscopy December 2014 Past Surgical History: Reports: Cholecystectomy Social History Lives with: Family Smoking Status: Never Smoker Frequency of Alcohol Use: Social Hx Recreational Drug Use: No Drugs: Marijuana Hx Prescription Drug Abuse: No - Advance Directive Resuscitation Status: Full Code Family History Family History: Malignancy Parental Family History Reviewed: No Children Family History Reviewed: NA Sibling(s) Family History Reviewed.: NA Medication/Allergy Home Medications: Allopurinol [Zyloprim 100 mg Tablet] 200 mg PO DAILY 03/07/17 Amlodipine Besylate [Norvasc 5 mg Tablet] 5 mg PO QHS 03/07/17 Aspirin [Ecotrin 81 mg EC Tablet] 81 mg PO DAILY 03/07/17 Docusate Sodium [Colace 100 mg Capsule] 100 mg PO DAILY 03/07/17 Ergocalciferol (Vitamin D2) [Vitamin D2] 50,000 unit PO MO@1000 03/07/17 Ibuprofen [Motrin 800 mg Tablet] 800 mg PO Q8HP PRN 03/07/17 Irbesartan [Avapro] 300 mg PO QAM 03/07/17 Levothyroxine Sodium [Synthroid 0.05 mg Tablet] 0.05 mg PO QAM 03/07/17 Zolpidem Tartrate [Ambien 5 mg Tablet] 5 mg PO HSP PRN 03/07/17 Allergies/Adverse Reactions: No Known Allergies Allergy (Verified 03/07/17 11:10) Review of Systems All systems: reviewed and no additional remarkable complaints except as stated Physical Exam Vital Signs: Temp Pulse Resp BP Pulse Ox 98.5 F 75 25 H 156/75 H 97 03/08/17 15:56 03/08/17 17:37 03/08/17 17:37 03/08/17 17:37 03/08/17 17:37 Intake & Output 03/07/17 03/08/17 03/09/17 06:59 06:59 06:59 Intake Total 2500 300 Output Total 600 600 Balance 1900 -300 Weight 81.3 kg Exam: General: Patient is alert and looks well. HEENT: There is pallor and jaundice. PERRLA. Oropharynx normal Respiratory: No chest deformity. No respiratory distress. Chest wall palpitation was unremarkable. Breath sounds were normal Cardiovascular: Heart sounds 1 and 2 normal with no murmurs. Abdominal: Not distended. Soft and nontender. Liver and spleen not palpable. No ascites demonstrated. Bowel sounds active. Rectal examination was deferred. Extremities: No edema Neurological: Alert and oriented x4. Grossly nonfocal. Normal speech Skin: No significant rash Psychological: Normal affect Results Laboratory Results: 03/08/17 09:53 03/08/17 09:53 03/07/17 03/07/17 03/07/17 17:45 17:45 17:45 WBC 14.7 H RBC 2.56 L Hgb 8.5 L Hct 26.1 L MCV 102 H MCH 33.0 MCHC 32.4 RDW 18.0 H Plt Count 136 L Seg Neutrophils % Lymphocytes % Monocytes % Eosinophils % Basophils % Absolute Neutrophils Absolute Lymphocytes Absolute Monocytes Absolute Eosinophils Absolute Basophils Sodium Potassium Chloride Carbon Dioxide Anion Gap BUN Creatinine Est GFR ( Amer) Est GFR (Non-Af Amer) Glucose Calcium Total Bilirubin AST ALT Alkaline Phosphatase Total Protein Albumin Vitamin B12 354.0 Folate 6.40 TSH 2.96 03/08/17 03/08/17 03/08/17 00:12 09:53 09:53 WBC 11.1 H 8.2 RBC 2.16 L 2.90 L Hgb 7.1 L 9.2 L D Hct 21.8 L 27.9 L MCV 101 H 96 D MCH 32.8 31.8 MCHC 32.4 33.0 RDW 17.4 H 21.7 H Plt Count 123 L 122 L Seg Neutrophils % 56.4 Lymphocytes % 31.4 Monocytes % 10.1 Eosinophils % 1.4 Basophils % 0.7 Absolute Neutrophils 4.6 Absolute Lymphocytes 2.6 Absolute Monocytes 0.8 Absolute Eosinophils 0.1 Absolute Basophils 0.1 Sodium 140.2 Potassium 4.1 Chloride 113 H Carbon Dioxide 18 L Anion Gap 9 BUN 34 H Creatinine 1.28 H Est GFR ( Amer) 51 L Est GFR (Non-Af Amer) 42 L Glucose 124 H Calcium 8.0 L Total Bilirubin 1.4 H AST 59 H ALT 24 Alkaline Phosphatase 94 Total Protein 6.1 L Albumin 2.6 L Vitamin B12 Folate TSH 03/08/17 09:53 Creatine Kinase 84 Assessment & Plan - Diagnosis (1) Gastrointestinal bleed Qualifiers: GI bleed type/associated pathology: melena Qualified Code(s): K92.1 - Melena Is this a current diagnosis for this admission?: YesPlan: Differential diagnosis for her GI bleeding include peptic ulcer disease, NSAID induced ulcers, or variceal bleeding. She will undergo an EGD and continue with octreotide for now. (2) Jaundice Is this a current diagnosis for this admission?: YesPlan: She has alcoholic liver disease but hepatitis and autoimmune pathology will also be ruled out (3) Abnormal liver function test Is this a current diagnosis for this admission?: Yes (4) Acute blood loss anemia Is this a current diagnosis for this admission?: Yes (5) Alcohol abuse Is this a current diagnosis for this admission?: Yes
--- NOTE | 2017-03-08 18:12 | Operative Report ---
Operative Report DATE OF SURGERY: 03/08/17 Operative Report: Pre-op diagnosis: Acute GI bleeding Post-op diagnosis: 1. Antral gastritis with small ulcers 2. Esophageal varices Surgery: Esophagogastroduodenoscopy with biopsy and varices rubberbanding Medications: Versed 5mg Fentanyl 100mcg IV push Tissue removed: Antral biopsy for pathology Procedure: After informed consent obtained from patient, the throat was sprayed with Hurricane and conscious sedation was achieved. The upper endoscope was inserted into the esophagus under direct vision and advanced into the stomach. The duodenum was entered and examined to the second part. Endoscope was then slowly pulled out of the patient as the mucosa was examined into details. Patient tolerated procedure well. Findings Esophagus: A moderate sized varix was noted in the distal esophagus with 2 small varices. There was no definite evidence for recent bleeding. 3 ALBERT rubber bands were applied over this varix. Antrum: Moderate erythema with a few erosions and 2 small ulcers Body: Normal Fundus: Normal Duodenum first part: Normal Duodenum second part: Normal Plan: Await pathology. Continue octreotide for the next 1-2 days. Continue Prevacid. Repeat EGD with banding in 1 month OPERATION: .
[2017-03-08] MEDS: SUCRALFATE SUSP 1 GM/10 ML UDCUP PO SCH (20:18)
[2017-03-09] MEDS: NORMAL SALINE 500 ML with OCTREOTIDE ACETATE 500 MCG IV PRN ×4 (01:13→13:06)
[2017-03-09] MEDS: NORMAL SALINE 100 ML with PANTOPRAZOLE SODIUM 80 MG IV PRN ×2 (02:16)
[2017-03-09] MEDS: SUCRALFATE SUSP 1 GM/10 ML UDCUP PO SCH ×4 (02:18→20:29)
[2017-03-09 04:56] LABS: ABSOLUTE LYMPHOCYTES (AUTO) 1.8 10^3/uL (0.5-4.7); ABSOLUTE MONOCYTES (AUTO) 0.6 10^3/uL (0.1-1.4); ABSOLUTE NEUT (AUTO) 5.5 10^3/uL (1.7-8.2); BASOPHILS % (AUTO) 0.5 % (0-2); EOSINOPHILS % (AUTO) 0.4 % (0-6); HEMATOCRIT 30.6 % (36.0-47.0); HEMOGLOBIN 10.1 g/dL (12.0-15.5); HGB HCT DIFFERENCE -0.3; MEAN CORPUSCULAR HGB CONC 32.9 g/dL (32.0-36.0); MEAN CORPUSCULAR VOLUME 97 fl (80-97); MONOCYTES % (AUTO) 7.5 % (3-13); RED BLOOD COUNT 3.14 10^6/uL (3.72-5.28); SEGMENTED NEUTROPHILS % (AUTO) 69.6 % (42-78)
[2017-03-09] MEDS ORDERED: LANSOPRAZOLE 30 MG TAB.RAP.DR PO ONE (08:15)
[2017-03-09 08:48] LABS: ALANINE AMINOTRANSFERASE 28 U/L (9-52); ALBUMIN 2.9 g/dL (3.5-5.0); ALKALINE PHOSPHATASE 99 U/L (38-126); ANION GAP 10 (5-19); ASPARTATE AMINO TRANSFERASE 59 U/L (14-36); BILIRUBIN,DIRECT 0.6 mg/dL (0.0-0.4); BLOOD UREA NITROGEN 20 mg/dL (7-20); CALCIUM 8.2 mg/dL (8.4-10.2); CARBON DIOXIDE 18 mmol/L (22-30); CHLORIDE 110 mmol/L (98-107); CREATININE RESULT 1.04 mg/dL (0.52-1.25); GLUCOSE 172 mg/dL (75-110); POTASSIUM 3.9 mmol/L (3.6-5.0); SODIUM 137.6 mmol/L (137-145)
[2017-03-09] MEDS: THIAMINE HCL 100 MG, FOLIC ACID 1 MG in NORMAL SALINE 50 ML IV SCH (11:12)
[2017-03-09 12:38] LABS: JO-1 ANTIBODY (ANACOMP) <0.2 AI (0.0-0.9)
[2017-03-09] MEDS: CEFTRIAXONE 1 GM/D5W RTU 1 GM/50 ML RTUPB IV SCH (14:44)
[2017-03-09 15:12] LABS: ANTI-SS-B AB SJOGREN'S <0.2 AI (0.0-0.9)
[2017-03-09] MEDS: LANSOPRAZOLE 30 MG TAB.RAP.DR PO SCH (16:49)
--- NOTE | 2017-03-09 16:56 | PDOC PROGRESS REPORT ---
Subjective Progress Note for:: 03/09/17 Subjective:: Patient reports episode of vomiting just prior to my coming in. Patient continues to have melena. Patient denies chest pain, shortness of breath, vomiting, fever, chills, headache, constipation, new onset weakness. Physical Exam Vital Signs: Temp Pulse Resp BP Pulse Ox 98.1 F 64 18 154/62 H 95 03/09/17 03:30 03/09/17 03:30 03/09/17 03:30 03/09/17 03:30 03/09/17 03:30 Intake & Output 03/08/17 03/09/17 03/10/17 06:59 06:59 06:59 Intake Total 2500 4628 Output Total 600 1250 Balance 1900 3378 Weight 81.3 kg 78.9 kg Exam: GENERAL: No acute distress HEENT: parotid swelling bilaterally, Conjunctiva clear, nonicteric, moist mucous membranes, no JVD, midline trachea RESPIRATORY: CTAB CARDIAC: Regular rate and rhythm, no murmurs/gallops/rubs ABDOMEN: Soft, nondistended, NTTP, positive bowel sounds, no rebound, no guarding EXTREMETIES: No edema, cyanosis, clubbing NEURO: CN 2-12 grossly intact without focal deficits, A+Ox3 SKIN: No rash, palmar erythema Results Laboratory Results: 03/09/17 04:21 03/08/17 09:53 03/08/17 03/08/17 03/09/17 09:53 09:53 04:21 WBC 8.2 8.0 RBC 2.90 L 3.14 L Hgb 9.2 L D 10.1 L Hct 27.9 L 30.6 L MCV 96 D 97 MCH 31.8 32.0 MCHC 33.0 32.9 RDW 21.7 H 22.0 H Plt Count 122 L 130 L Seg Neutrophils % 56.4 69.6 Lymphocytes % 31.4 22.0 Monocytes % 10.1 7.5 Eosinophils % 1.4 0.4 Basophils % 0.7 0.5 Absolute Neutrophils 4.6 5.5 Absolute Lymphocytes 2.6 1.8 Absolute Monocytes 0.8 0.6 Absolute Eosinophils 0.1 0.0 Absolute Basophils 0.1 0.0 Sodium 140.2 Potassium 4.1 Chloride 113 H Carbon Dioxide 18 L Anion Gap 9 BUN 34 H Creatinine 1.28 H Est GFR ( Amer) 51 L Est GFR (Non-Af Amer) 42 L Glucose 124 H Calcium 8.0 L Total Bilirubin 1.4 H AST 59 H ALT 24 Alkaline Phosphatase 94 Total Protein 6.1 L Albumin 2.6 L 03/08/17 09:53 Creatine Kinase 84 Assessment & Plan - Diagnosis (1) Gastrointestinal bleed Qualifiers: GI bleed type/associated pathology: melena Qualified Code(s): K92.1 - Melena Is this a current diagnosis for this admission?: YesPlan: Secondary to small gastric ulcers with reported excessive use of ibuprofen. Although evidence of bleeding, found to have varix. Patient on Somatostatin and oral Carafate. Prevacid bid Continue clear liquids. (2) Acute blood loss anemia Is this a current diagnosis for this admission?: YesPlan: Secondary to GI bleed H&H stable at 10.1 Patient received 2uPRBC on 03/08/17 (3) Parotid swelling Is this a current diagnosis for this admission?: YesPlan: Upon chart review, patient had a prior elevated ESR of 72 and reports arthritis in multiple sites. At this time will send THAO, Sjogren's antibodies, Rhematoid Factor, and complement. I recommend and have expressed to the patient that this will require an outpatient evaluation including if indicated evaluation for sarcoid, malignancy , viral infection including HIV. This could also be the result of occult alcoholism. (4) HTN (hypertension) Qualifiers: Hypertension type: essential hypertension Qualified Code(s): I10 - Essential (primary) hypertension Is this a current diagnosis for this admission?: YesPlan: Hold antihypertensives prn hydralazine for sbp>180 (5) Hypothyroid Qualifiers: Hypothyroidism type: unspecified Qualified Code(s): E03.9 - Hypothyroidism, unspecified Is this a current diagnosis for this admission?: YesPlan: TSH is normal (6) Actinic keratosis of left cheek Is this a current diagnosis for this admission?: YesPlan: Recommend outpatient follow-up with dermatology (7) Tobacco abuse Is this a current diagnosis for this admission?: YesPlan: Encourage cessation (8) Alcohol abuse Is this a current diagnosis for this admission?: YesPlan: Place on thiamine, folic acid, mv, and prn ativan. (9) Esophageal varices determined by endoscopy Is this a current diagnosis for this admission?: Yes (10) Esophageal varices in alcoholic cirrhosis Is this a current diagnosis for this admission?: Yes (11) Gastric ulcer due to nonsteroidal anti-inflammatory drug (NSAID) Is this a current diagnosis for this admission?: Yes - Time Time Spent with patient: 25-34 minutes Medications reviewed and adjusted accordingly: Yes Anticipated discharge: Home Within: within 72 hours - Inpatient Certification Based on my medical assessment, after consideration of the patient's comorbidities, presenting symptoms, or acuity I expect that the services needed warrant INPATIENT care.: Yes I certify that my determination is in accordance with my understanding of Medicare's requirements for reasonable and necessary INPATIENT services [42 CFR 412.3e].: Yes Medical Necessity: Need For IV Fluids, Other - iv somatostatin and monitor h&H Post Hospital Care: D/C [facility] 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
[2017-03-09] MEDS ORDERED: HYDRALAZINE HCL INJ/PF 20 MG/1 ML SDV IV PRN (20:45)
[2017-03-09] MEDS: AMLODIPINE BESYLATE 5 MG TABLET PO SCH (21:14)
[2017-03-10] MEDS: NORMAL SALINE 500 ML with OCTREOTIDE ACETATE 500 MCG IV PRN ×4 (00:24→11:38)
[2017-03-10] MEDS: SUCRALFATE SUSP 1 GM/10 ML UDCUP PO SCH ×4 (03:40→22:05)
[2017-03-10 05:25] LABS: ABSOLUTE BASOPHILS # (AUTO) 0.1 10^3/uL (0.0-0.2); ABSOLUTE EOSINOPHILS # (AUTO) 0.1 10^3/uL (0.0-0.6); ABSOLUTE LYMPHOCYTES (AUTO) 2.9 10^3/uL (0.5-4.7); ABSOLUTE MONOCYTES (AUTO) 1.3 10^3/uL (0.1-1.4); ABSOLUTE NEUT (AUTO) 8.8 10^3/uL (1.7-8.2); BASOPHILS % (AUTO) 0.5 % (0-2); EOSINOPHILS % (AUTO) 0.8 % (0-6); HEMATOCRIT 30.9 % (36.0-47.0); HEMOGLOBIN 10.1 g/dL (12.0-15.5); HGB HCT DIFFERENCE -0.6; LYMPHOCYTES % (AUTO) 22.2 % (13-45); MEAN CORPUSCULAR HEMOGLOBIN 31.9 pg (27.0-33.4); MEAN CORPUSCULAR HGB CONC 32.6 g/dL (32.0-36.0); MEAN CORPUSCULAR VOLUME 98 fl (80-97); MONOCYTES % (AUTO) 9.5 % (3-13); RED BLOOD COUNT 3.16 10^6/uL (3.72-5.28); RED CELL DISTRIBUTION WIDTH 20.8 % (11.5-14.0); WHITE BLOOD COUNT 13.2 10^3/uL (4.0-10.5)
[2017-03-10] MEDS: LANSOPRAZOLE 30 MG TAB.RAP.DR PO SCH ×2 (05:36→17:46)
[2017-03-10] MEDS ORDERED: (PENDING PHARMACY ID) (Irbesartan [Avapro] 300 MG) PO SCH (08:00)
[2017-03-10] MEDS ORDERED: LOSARTAN POTASSIUM 50 MG TABLET PO ONE (10:00)
[2017-03-10] MEDS: LEVOTHYROXINE SODIUM 0.05 MG TABLET PO SCH (10:30)
[2017-03-10] MEDS: THIAMINE HCL 100 MG, FOLIC ACID 1 MG in NORMAL SALINE 50 ML IV SCH (12:57)
[2017-03-10] MEDS ORDERED: SIMETHICONE 80 MG TAB.CHEW PO PRN (14:03)
[2017-03-10] MEDS: CEFTRIAXONE 1 GM/D5W RTU 1 GM/50 ML RTUPB IV SCH (14:46)
--- NOTE | 2017-03-10 18:53 | PDOC PROGRESS REPORT ---
Subjective Progress Note for:: 03/10/17 Subjective:: Patient seen earlier today on morning rounds. She reports she is feeling 100% improved. Patient denies chest pain, shortness of breath, vomiting, fever, chills, headache, constipation, new onset weakness hematemesis, melena, hematochezia. Physical Exam Vital Signs: Temp Pulse Resp BP Pulse Ox 98.6 F 77 18 166/88 H 97 03/10/17 14:57 03/10/17 14:57 03/10/17 14:57 03/10/17 14:57 03/10/17 14:57 Intake & Output 03/09/17 03/10/17 03/11/17 06:59 06:59 06:59 Intake Total 4628 2755 1341 Output Total 1250 1700 Balance 3378 1055 1341 Weight 78.9 kg 68.6 kg Exam: GENERAL: No acute distress HEENT: Mild parotid swelling bilaterally, Conjunctiva clear, nonicteric, moist mucous membranes, no JVD, midline trachea RESPIRATORY: CTAB CARDIAC: Regular rate and rhythm, no murmurs/gallops/rubs ABDOMEN: Soft, nondistended, NTTP, positive bowel sounds, no rebound, no guarding EXTREMETIES: No edema, cyanosis, clubbing NEURO: CN 2-12 grossly intact without focal deficits, A+Ox3 SKIN: No rash, palmar erythema Results Laboratory Results: 03/10/17 04:09 03/09/17 04:21 03/10/17 04:09 WBC 13.2 H RBC 3.16 L Hgb 10.1 L Hct 30.9 L MCV 98 H MCH 31.9 MCHC 32.6 RDW 20.8 H Plt Count 143 L Seg Neutrophils % 67.0 Lymphocytes % 22.2 Monocytes % 9.5 Eosinophils % 0.8 Basophils % 0.5 Absolute Neutrophils 8.8 H Absolute Lymphocytes 2.9 Absolute Monocytes 1.3 Absolute Eosinophils 0.1 Absolute Basophils 0.1 03/08/17 01:38 Clean Catch Midstream Urine Culture - Final Escherichia Coli 03/08/17 09:53 Creatine Kinase 84 Assessment & Plan - Diagnosis (1) Esophageal varices in alcoholic cirrhosis Is this a current diagnosis for this admission?: YesPlan: Continue to taper off patient somatostatin. Encourage patient to eat more than clears and if tolerates this tomorrow will be able to be discharged. Patient has undergone variceal banding and will require repeat EGD. (2) Esophageal varices determined by endoscopy Is this a current diagnosis for this admission?: Yes (3) Gastric ulcer due to nonsteroidal anti-inflammatory drug (NSAID) Is this a current diagnosis for this admission?: YesPlan: Prevacid twice daily and Carafate (4) Gastrointestinal bleed Qualifiers: GI bleed type/associated pathology: melena Qualified Code(s): K92.1 - Melena Is this a current diagnosis for this admission?: Yes (5) Acute blood loss anemia Is this a current diagnosis for this admission?: YesPlan: Secondary to GI bleed H&H stable at 10 Patient received 2uPRBC on 03/08/17 (6) Parotid swelling Is this a current diagnosis for this admission?: YesPlan: Upon chart review, patient had a prior elevated ESR of 72 and reports arthritis in multiple sites. 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 I recommend and have expressed to the patient that this will require an outpatient evaluation including if indicated evaluation for sarcoid, malignancy , viral infection including HIV. Likely result of occult alcoholism. (7) HTN (hypertension) Qualifiers: Hypertension type: essential hypertension Qualified Code(s): I10 - Essential (primary) hypertension Is this a current diagnosis for this admission?: YesPlan: Home antihypertensives resumed prn hydralazine for sbp>180 Suspect a component of alcohol withdrawal if patient's hypertension (8) Hypothyroid Qualifiers: Hypothyroidism type: unspecified Qualified Code(s): E03.9 - Hypothyroidism, unspecified Is this a current diagnosis for this admission?: YesPlan: TSH is normal (9) Actinic keratosis of left cheek Is this a current diagnosis for this admission?: Yes (10) Tobacco abuse Is this a current diagnosis for this admission?: Yes (11) Alcohol abuse Is this a current diagnosis for this admission?: YesPlan: Place on thiamine, folic acid, mv, and prn ativan. - Time Time Spent with patient: 25-34 minutes Medications reviewed and adjusted accordingly: Yes Anticipated discharge: Home Within: within 24 hours - Inpatient Certification Based on my medical assessment, after consideration of the patient's comorbidities, presenting symptoms, or acuity I expect that the services needed warrant INPATIENT care.: Yes I certify that my determination is in accordance with my understanding of Medicare's requirements for reasonable and necessary INPATIENT services [42 CFR 412.3e].: Yes Medical Necessity: Need For IV Fluids Post Hospital Care: D/C [facility] 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
[2017-03-10] MEDS: AMLODIPINE BESYLATE 5 MG TABLET PO SCH (22:05)
[2017-03-11] MEDS: SUCRALFATE SUSP 1 GM/10 ML UDCUP PO SCH ×2 (02:58→08:13)
[2017-03-11] MEDS: LANSOPRAZOLE 30 MG TAB.RAP.DR PO SCH (05:19)
[2017-03-11] MEDS ORDERED: LOSARTAN POTASSIUM 50 MG TABLET PO SCH (08:00)
[2017-03-11] MEDS: LEVOTHYROXINE SODIUM 0.05 MG TABLET PO SCH (08:13)
[2017-03-11 10:54] VITALS: BP 172/80
--- NOTE | 2017-03-11 13:33 | PDOC DISCHARGE SUMMARY ---
General - Admit/Disc Date/PCP Admission Date/Primary Care Provider: 03/07/17 15:46 JAKE LEDEZMA PA-C Discharge Date: 03/11/17 - Discharge Diagnosis (1) Esophageal varices in alcoholic cirrhosis Is this a current diagnosis for this admission?: Yes (2) Esophageal varices determined by endoscopy Is this a current diagnosis for this admission?: Yes (3) Gastric ulcer due to nonsteroidal anti-inflammatory drug (NSAID) Is this a current diagnosis for this admission?: Yes (4) Gastrointestinal bleed Is this a current diagnosis for this admission?: Yes (5) Acute blood loss anemia Is this a current diagnosis for this admission?: Yes (6) Parotid swelling Is this a current diagnosis for this admission?: Yes (7) HTN (hypertension) Is this a current diagnosis for this admission?: Yes (8) Hypothyroid Is this a current diagnosis for this admission?: Yes (9) Actinic keratosis of left cheek Is this a current diagnosis for this admission?: Yes (10) Tobacco abuse Is this a current diagnosis for this admission?: Yes (11) Alcohol abuse Is this a current diagnosis for this admission?: Yes - Additional Information Resuscitation Status: Full Code Discharge Diet: Cardiac Discharge Activity: Activity As Tolerated Home Medications: Allopurinol [Zyloprim 100 mg Tablet] 200 mg PO DAILY 03/07/17 Amlodipine Besylate [Norvasc 5 mg Tablet] 5 mg PO QHS 03/07/17 Ergocalciferol (Vitamin D2) [Vitamin D2] 50,000 unit PO MO@1000 03/07/17 Irbesartan [Avapro] 300 mg PO QAM 03/07/17 Levothyroxine Sodium [Synthroid 0.05 mg Tablet] 0.05 mg PO QAM 03/07/17 Dexlansoprazole [Dexilant 30 mg Capsule] 30 mg PO BID #60 03/11/17 Folic Acid [Folvite 1 mg Tablet] 1 mg PO DAILY #30 tablet 03/11/17 Thiamine HCl [Thiamine 100 mg Tablet] 100 mg PO DAILY #30 tablet 03/11/17 Tramadol HCl [Ultram] 50 mg PO Q8HP PRN #10 tablet 03/11/17 History of Present Illness History of Present Illness: NAVEED MONDRAGON is a 61 year old female medical history of hypertension who presents to the emergency department with presyncope. Patient reports that she woke up not feeling very well and went to the bathroom and thereupon had black stool. She began to feel weak and dizzy with subsequent loss of consciousness. Patient also reports one episode of emesis which did have blood streaking in it. Patient reports that she has been taking ibuprofen 800 mg 1-2 tablets 2-3 times per day. Patient has also been taking low-dose aspirin. She denies any use of [id number] NSAIDs or additional aspirin usage. Patient does report occasional drinking on the weekends. Had a prior colonoscopy with Dr. Ibrahim. Patient is found to be anemic and mildly hypotensive with acute GI bleed. Hospital Course Hospital Course: Patient was admitted and placed on IMCU and serial hemoglobins were monitored. Started on Protonix and somatostatin drips. Patient's hypotension was improved with IV fluids. Patient did receive 2 units of packed red blood cells for hemoglobin of 7.2. She underwent upper endoscopy which revealed gastric antral ulcers and esophageal varices. Patient had her esophageal varices banded. Somatostatin was weaned off over 2 days and she had no recurrence of bleeding. Patient was noted to have bilateral parotid swelling and upon chart review, patient had a prior elevated ESR of 72 and reports arthritis in multiple sites. 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 Parotid swelling had all but resolved prior to discharge; howeverI recommend and have expressed to the patient that this will require an outpatient evaluation including if indicated evaluation for sarcoid, malignancy, viral infection including HIV. Likely result of her alcoholism. Physical Exam Vital Signs: Temp Pulse Resp BP Pulse Ox 98.2 F 72 18 172/80 H 97 03/11/17 10:00 03/11/17 10:00 03/11/17 10:00 03/11/17 10:00 03/11/17 10:00 Intake & Output 03/10/17 03/11/17 03/12/17 06:59 06:59 06:59 Intake Total 2755 1681 Output Total 1700 Balance 1055 1681 Weight 68.6 kg 79.5 kg Exam: GENERAL: No acute distress HEENT: Mild parotid swelling bilaterally, Conjunctiva clear, nonicteric, moist mucous membranes, no JVD, midline trachea RESPIRATORY: CTAB CARDIAC: Regular rate and rhythm, no murmurs/gallops/rubs ABDOMEN: Soft, nondistended, NTTP, positive bowel sounds, no rebound, no guarding EXTREMETIES: No edema, cyanosis, clubbing NEURO: CN 2-12 grossly intact without focal deficits, A+Ox3 SKIN: No rash, palmar erythema Results Laboratory Results: 03/10/17 04:09 03/09/17 04:21 03/08/17 01:38 Clean Catch Midstream Urine Culture - Final Escherichia Coli 03/08/17 09:53 Creatine Kinase 84 Qualifiers PATEINT BEING DISCHARGED WITH ANY OF THE FOLLOWING DIAGNOSIS?: No Plan Time Spent: Less than 30 Minutes
== END 2017-03-11 11:18 | disposition home or self-care (01) | DRG 432 ==
LOC: ER 10:59 → EH 15:46 → UNDOADMIN 16:15 → 3S 17:32
PROVIDERS: ADMIT Family Medicine; ATTEND Family Medicine
PROC: 30233N1 Transfusion of Nonautologous Red Blood Cells into Peripheral Vein, Percutaneous Approach (ICD-10-PCS; 2017-03-08)
PROC: 0DB68ZX Excision of Stomach, Via Natural or Artificial Opening Endoscopic, Diagnostic (ICD-10-PCS; principal; 2017-03-08 18:00)
PROC: 06L34CZ Occlusion of Esophageal Vein with Extraluminal Device, Percutaneous Endoscopic Approach (ICD-10-PCS; 2017-03-08 18:00)
DX: K70.30 Alcoholic cirrhosis of liver without ascites (principal); I85.11 Secondary esophageal varices with bleeding; K25.4 Chronic or unspecified gastric ulcer with hemorrhage; D62 Acute posthemorrhagic anemia; R22.1 Localized swelling, mass and lump, neck; L57.0 Actinic keratosis; I10 Essential (primary) hypertension; E03.9 Hypothyroidism, unspecified; K21.9 Gastro-esophageal reflux disease without esophagitis; F32.9 Major depressive disorder, single episode, unspecified; Z79.899 Other long term (current) drug therapy
CPT/HCPCS: 36415; 36430; 43239; 43244; 80053; 80074; 80307; 81001; 82272; 82550; 82607; 82746; 83036; 84443; 85025; 85027; 85610; 85730; 86162; 86225; 86235; 86256; 86430; 86850; 86900; 86901; 86920; 87086; 87088; 87186; 88305; 88342; 96360; 99285; J0171; J0360; J0696; J1610; J2060; J2250; J2310; J2354; J2405; J3010; J3411; J3490; J7030; J7040; P9016; S0164

== ENCOUNTER 2017-09-28 11:15 | Emergency (ER) | payer OTHER, MEDICAID ==
[2017-09-28 11:21] VITALS: BP 148/77
[2017-09-28] MEDS ORDERED: KETOROLAC TROMETHAMINE INJ/PF 30 MG/1 ML SDV IM ONE (12:07)
--- NOTE | 2017-09-28 12:12 | ER Document Report ---
HPI - HPI Pain Level: 3 Notes: Patient is a 62-year-old female who presents the ED complaining of left knee pain 1-1/2 weeks and left shoulder soreness that began today. Patient states that she is still ambulatory, but does limp on occasion. She has been using some [id number] meds with minimal relief. Patient has not noticed any obvious swelling, redness, or warmth to her knee. Patient has not had any recent illness. She denies any recent trauma or injury otherwise. She is still eating and drinking without any difficulties. She is urinating normally and having normal bowel movements. She denies any drug allergies. Patient has a medical history significant for hypertension, hypothyroid, and gout. Patient states that this pain does not feel like gout to her. No other concerns or complaints. Denies any headache, fever, neck pain, URI, sore throat, chest pain , palpitations, syncope, cough, shortness of breath, wheeze, dyspnea, abdominal pain, nausea/vomiting/diarrhea, urinary retention, dysuria, hematuria, loss of control of bowel or bladder, numbness/tingling, saddle anesthesia, muscle paralysis/weakness, or rash. - ROS Systems Reviewed and Negative: Yes All other systems reviewed and negative - REPRODUCTIVE Reproductive: DENIES: : Past Medical History - Social History Smoking Status: Never Smoker Family History: Malignancy - Past Medical History Cardiac Medical History: Reports: Hx Hypertension Denies: Hx Coronary Artery Disease, Hx Heart Attack Pulmonary Medical History: Denies: Hx Asthma, Hx Bronchitis, Hx COPD, Hx Pneumonia Neurological Medical History: Denies: Hx Cerebrovascular Accident, Hx Seizures Endocrine Medical History: Reports: Hx Diabetes Mellitus Type 2 Renal/ Medical History: Denies: Hx Peritoneal Dialysis GI Medical History: Reports: Hx Cirrhosis, Hx Gastroesophageal Reflux Disease Musculoskeltal Medical History: Reports Hx Arthritis Psychiatric Medical History: Reports: Hx Depression Past Surgical History: Reports: Hx Cholecystectomy. Denies: Hx Hysterectomy - Immunizations Hx Diphtheria, Pertussis, Tetanus Vaccination: Yes Vertical Provider Document - CONSTITUTIONAL Agree With Documented VS: Yes Notes: PHYSICAL EXAMINATION: GENERAL: Well-appearing, well-nourished and in no acute distress. HEAD: Atraumatic, normocephalic. EYES: Pupils equal round and reactive to light, extraocular movements intact, sclera anicteric, conjunctiva are normal. ENT: Nares patent and without discharge. oropharynx clear without exudates. No tonsilar hypertrophy or erythema. Moist mucous membranes. NECK: Normal range of motion, supple without lymphadenopathy. Nontender. + mild tenderness to the lt trap mm. LUNGS: Breath sounds clear to auscultation bilaterally and equal. No wheezes rales or rhonchi. HEART: Regular rate and rhythm without murmurs, rubs, gallops. ABDOMEN: Soft, nontender, nondistended abdomen. No guarding, no rebound. No masses appreciated. Normal bowel sounds present. No CVA tenderness bilaterally. Musculoskeletal: UE's: FROM to passive/active. Strength 5+/5. No bony tenderness to the left shoulder. + mild tenderness to the left trap mm. Speed/ angy negative. N/V intact distal. Lt knee: FROM to passive/active. Strength 5+/5. no obvious effusion, erythema , warmth, swelling, or deformity aside from arthritic changes noted. + mild tenderness to the medial knee. Keron/patellar grind neg. Ligamentous stable. N/V intact distal. No hip tenderness to palp of with ROM. Extremities: No cyanosis, clubbing, or edema b/l. Peripheral pulses 2+. Capillary refill less than 3 seconds. NEUROLOGICAL: Normal speech, normal gait. Normal sensory, motor exams PSYCH: Normal mood, normal affect. SKIN: Warm, Dry, normal turgor, no rashes or lesions noted. - INFECTION CONTROL TRAVEL OUTSIDE OF THE [place] IN LAST 30 DAYS: No - RESPIRATORY O2 Sat by Pulse Oximetry: 99 Course - Re-evaluation Re-evalutation: 09/28/17 12:30 Patient is an afebrile, well-hydrated, 62-year-old female who presents to the ED with left knee/shoulder pain, suspect inflammatory/benign at this time. Vitals are stable. PE is otherwise unremarkable for any neurovascular compromise, obvious tendon/ligament rupture, obvious fracture/dislocation, septic joint, or disc compression causing severe spinal stenosis. X-ray of the left knee was unremarkable for any acute pathology. No other labs or imaging warranted at this time based on H&P. Toradol was given IM today. Recommend conservative measures for symptoms. Recheck with your PCM in 3-5 days. Consider consult with orthopedics and physical therapy. Return to the ED with any worsening/concerning symptoms otherwise as reviewed in discharge. Patient is in agreement. - Vital Signs Vital signs: Temp Pulse Resp BP Pulse Ox 98.4 F 66 18 148/77 H 99 09/28/17 11:20 09/28/17 11:20 09/28/17 11:20 09/28/17 11:20 09/28/17 11:20 Discharge - Discharge Clinical Impression: Left knee pain Qualifiers: Chronicity: acute Qualified Code(s): M25.562 - Pain in left knee Left shoulder pain Qualifiers: Chronicity: acute Qualified Code(s): M25.512 - Pain in left shoulder Condition: Stable Disposition: HOME, SELF-CARE Instructions: Knee Exercise Program ([facility]), Exercise Program for the Shoulder ( [facility]) Additional Instructions: Rest, Ice, Compression, Elevation Tylenol/ibuprofen as needed Light stretches daily Strength exercises as able Moist heat and massage may help F/u with your PCP in 3-5 days for a recheck Consider consult(s) with Orthopedics/physical therapy for ongoing/worsening symptoms Return to the ED with any worsening symptoms and/or development of fever, headache, chest pain, palpitations, syncope, shortness of breath, trouble breathing, abdominal pain, n/v/d, muscle weakness/paralysis, numbness/tingling, swelling, redness, or other worsening symptoms that are concerning to you. Prescriptions: Naproxen 500 mg PO BID PRN #30 tablet PRN Reason: Forms: Elevated Blood Pressure Referrals: [facility] [Provider Group] - Follow up as needed
--- NOTE | 2017-09-28 12:32 | RADIOLOGY REPORT (SQ) ---
EXAM DESCRIPTION: KNEE LEFT 4 VIEW COMPLETED DATE/TIME: 09/28/2017 12:24 pm REASON FOR STUDY: left knee pain COMPARISON: None. NUMBER OF VIEWS: Four views. TECHNIQUE: AP, lateral, and both oblique radiographic images acquired of the left knee. LIMITATIONS: None. FINDINGS: MINERALIZATION: Normal. BONES: No acute fracture or dislocation. No worrisome bone lesions. Mild medial joint space narrowing with osteophytes. JOINT: No effusion. No chondrocalcinosis. OTHER: No other significant finding. IMPRESSION: MILD DEGENERATIVE CHANGES IN THE MEDIAL COMPARTMENT. NO ACUTE FINDINGS. TECHNICAL DOCUMENTATION: JOB ID: [id number] [employer]- All Rights Reserved
== END 2017-09-28 12:44 | disposition home or self-care (01) ==
LOC: ER 11:15
DX: M25.562 Pain in left knee (principal); M25.512 Pain in left shoulder; I10 Essential (primary) hypertension; E03.9 Hypothyroidism, unspecified
CPT/HCPCS: 99283; 96372; 73562; J1885

== ENCOUNTER → 2017-11-16 | Outpatient (CLI) | payer OTHER, MEDICAID ==
--- NOTE | 2017-11-16 12:22 | RADIOLOGY REPORT (SQ) ---
EXAM DESCRIPTION: CHEST PA/LATERAL COMPLETED DATE/TIME: 11/16/2017 12:05 pm REASON FOR STUDY: PRE-OP COMPARISON: 05/15/2011 EXAM PARAMETERS: NUMBER OF VIEWS: two views TECHNIQUE: Digital Frontal and Lateral radiographic views of the chest acquired. RADIATION DOSE: NA LIMITATIONS: none FINDINGS: LUNGS AND PLEURA: No consolidation or effusions. Nodular density in the right hilar regio n is consistent with vessel on end. No pneumothorax. MEDIASTINUM AND HILAR STRUCTURES: No masses or contour abnormalities. HEART AND VASCULAR STRUCTURES: Heart is enlarged. No failure. BONES: No acute findings. HARDWARE: None in the chest. OTHER: No other significant finding. IMPRESSION: Cardiac enlargement. No acute findings in the chest. TECHNICAL DOCUMENTATION: JOB ID: [id number] [employer]- All Rights Reserved Reading location - IP/workstation name: [email or web address]
[2017-11-16 12:41] LABS: ANION GAP 11 (5-19); BLOOD UREA NITROGEN 15 mg/dL (7-20); CALCIUM 9.5 mg/dL (8.4-10.2); CARBON DIOXIDE 26 mmol/L (22-30); CHLORIDE 105 mmol/L (98-107); GLUCOSE 156 mg/dL (75-110); POTASSIUM 4.2 mmol/L (3.6-5.0); SODIUM 142.2 mmol/L (137-145)
--- NOTE | 2017-11-16 13:07 | EKG REPORT ---
SEVERITY:- BORDERLINE ECG - SINUS RHYTHM LVH BY VOLTAGE : Confirmed by: Luis Mishra MD 16-Nov-2017 13:07:15
[2017-11-16 16:45] LABS: APPEARANCE,URINE CLOUDY; BILIRUBIN,URINE MODERATE (NEGATIVE); CALCIUM OXALATE CRYSTALS,URINE FEW /HPF; GLUCOSE, URINE NEGATIVE (NEGATIVE); KETONES,URINE NEGATIVE (NEGATIVE); LEUKOCYTE ESTERASE,URINE TRACE (NEGATIVE); NITRITE,URINE NEGATIVE (NEGATIVE); PROTEIN,URINE 30 mg/dL (NEGATIVE); URINE SPECIFIC GRAVITY 1.038
[2017-11-16 16:46] LABS: COLOR,URINE YELLOW
== END ==
LOC: OD 11:14
PROVIDERS: ATTEND Orthopaedic Surgery
DX: Z01.818 Encounter for other preprocedural examination (principal)
CPT/HCPCS: 36415; 71046; 80048; 81001; 83036; 93005; 93010

== ENCOUNTER → 2017-11-21 | Outpatient (CLI) | payer OTHER, MEDICAID ==
[2017-11-21 10:47] LABS: ABSOLUTE BASOPHILS # (AUTO) 0.1 10^3/uL (0.0-0.2); ABSOLUTE EOSINOPHILS # (AUTO) 0.2 10^3/uL (0.0-0.6); ABSOLUTE LYMPHOCYTES (AUTO) 2.8 10^3/uL (0.5-4.7); ABSOLUTE MONOCYTES (AUTO) 0.8 10^3/uL (0.1-1.4); ABSOLUTE NEUT (AUTO) 2.9 10^3/uL (1.7-8.2); BASOPHILS % (AUTO) 0.8 % (0-2); HEMATOCRIT 33.5 % (36.0-47.0); HEMOGLOBIN 10.8 g/dL (12.0-15.5); LYMPHOCYTES % (AUTO) 40.8 % (13-45); MEAN CORPUSCULAR HEMOGLOBIN 26.5 pg (27.0-33.4); MEAN CORPUSCULAR HGB CONC 32.2 g/dL (32.0-36.0); MEAN CORPUSCULAR VOLUME 82 fl (80-97); MONOCYTES % (AUTO) 12.3 % (3-13); PLATELET COUNT 170 10^3/uL (150-450); RED BLOOD COUNT 4.08 10^6/uL (3.72-5.28); RED CELL DISTRIBUTION WIDTH 18.7 % (11.5-14.0); SEGMENTED NEUTROPHILS % (AUTO) 43.1 % (42-78); TOTAL CELLS COUNTED % (AUTO) 100 %; WHITE BLOOD COUNT 6.8 10^3/uL (4.0-10.5)
== END ==
LOC: OD 10:16
PROVIDERS: ATTEND Orthopaedic Surgery
DX: Z01.818 Encounter for other preprocedural examination (principal)
CPT/HCPCS: 36415; 85025

== ENCOUNTER → 2018-01-30 | Outpatient (CLI) | payer OTHER, MEDICAID ==
--- NOTE | 2018-02-01 14:08 | WOMENS IMAGING REPORT ---
EXAM DESCRIPTION: 3D SCREENING MAMMO BILAT COMPLETED DATE/TIME: 01/30/2018 4:18 pm REASON FOR STUDY: SCREENING MAMMO Z12.31 ENCNTR SCREEN MAMMOGRAM FOR MALIGNANT NEOPLASM OF RYAN COMPARISON: 09/15/2014 TECHNIQUE: Standard craniocaudal and mediolateral oblique views of each breast recorded using digita l acquisition and breast tomosynthesis. LIMITATIONS: None. FINDINGS: RIGHT BREAST MASSES: No suspicious masses. CALCIFICATIONS: Increasing clustered calcifications 12 o'clock 8 cm from the nipple ARCHITECTURAL DISTORTION: None. DEVELOPING DENSITY: None. ASYMMETRY: None noted. OTHER: No other significant findings. LEFT BREAST MASSES: No suspicious masses. CALCIFICATIONS: No new or suspicious calcifications. ARCHITECTURAL DISTORTION: None. DEVELOPING DENSITY: None. ASYMMETRY: None noted. OTHER: No other significant findings. Read with the assistance of CAD. .[facility] - R2 Cenova Version 1.3 .[facility] Imaging - R2 Cenova Version 1.3 .[facility] Imaging - R2 Cenova Version 2.4 .[facility] - R2 Cenova Version 2.4 .[facility] - R2 Patient Service Representative Version 9.2 IMPRESSION: Increasing clustered calcifications in the right breast BREAST DENSITY: c. The breasts are heterogeneously dense, which may obscure small masses. BIRAD: 0 Incomplete: Needs Additional Imaging Evaluation and/or prior Mammograms for Comparison. RECOMMENDATION: RECOMMENDED FOLLOW-UP: Magnification imaging The patient will be contacted for additional imaging. COMMENT: The patient has been notified of the results by letter per SA requirements. Additional no tification policies are in place for contacting patient with suspicious or incomplete findings. Quality ID #225: The [employer] recommends an annual screening mammogram for women aged 40 years or over. This facility utilizes a reminder system to ensure that all patients receive reminder letters, and/or direct phone calls for appointments. This includes reminders for routine scr eening mammograms, diagnostic mammograms, or other Breast Imaging Interventions when appropriate. Th is patient will be placed in the appropriate reminder system. The [employer] (ACR) has developed recommendations for screening MRI of the breast s in certain patient populations, to be used in conjunction with mammography. Breast MRI surveillanc e may be appropriate for women with more than 20% lifetime risk of developing breast cancer as deter mined by genetic testing, significant family history of the disease, or history of mantle radiation f or Hodgkins Disease. ACR Practice Guidelines 2008. DBT Technology DBT is a type of tomographic mammography. With conventional mammography, overlapping breast tissue ma y make lesions difficult to detect, even with good compression. DBT uses an x-ray tube that rotates a round the breast, taking images at different angles. These images are then combined to create thin sl ices of the breast that the radiologist can view as a 3D reconstruction. The Hologic unit can perform full-field digital mammograms (2D imaging); or DBT (3D imaging); or both, in a combination mode that quickly performs both the mammogram and the tomosynthesis scan while the breast is still compressed. PQRS 6045F: Fluoroscopic imaging is not utilized for breast tomosynthesis. TECHNICAL DOCUMENTATION: FINDING NUMBER: (1) ASSESSMENT: (1) JOB ID: [id number] [employer]- All Rights Reserved Reading location - IP/workstation name: [email or web address]
== END ==
LOC: WI 11:11
PROVIDERS: ATTEND Internal Medicine
DX: Z12.31 Encounter for screening mammogram for malignant neoplasm of breast (principal)
CPT/HCPCS: 77063; 77067

== ENCOUNTER → 2018-02-07 | Outpatient (CLI) | payer OTHER, MEDICAID ==
--- NOTE | 2018-02-07 11:18 | WOMENS IMAGING REPORT ---
EXAM DESCRIPTION: RIGHT DIAGNOSTIC MAMMO W/CAD COMPLETED DATE/TIME: 02/07/2018 11:07 am REASON FOR STUDY: RIGHT BREAST CALCS R92.0 MAMMOGRAPHIC MICROCALCIFICATION FOUND ON DX IMAGING OF COMPARISON: 01/30/2018 and 09/15/2014. TECHNIQUE: True lateral and magnification lateral and CC images acquired. LIMITATIONS: None. FINDINGS: BREAST: right MASSES: No suspicious masses. CALCIFICATIONS: Cluster of calcifications in the superior breast which are irregular in size and shap e. ARCHITECTURAL DISTORTION: None. DEVELOPING DENSITY: None. ASYMMETRY: None noted. OTHER: No other significant findings. IMPRESSION: Cluster of calcifications in the superior breast with suspicious pleomorphic appearance. BREAST DENSITY: c. The breasts are heterogeneously dense, which may obscure small masses. BIRAD: 4 Suspicious. Biopsy should be considered. RECOMMENDATION: RECOMMENDED FOLLOW UP: Birads 4: Biopsy should be performed in the absence of clinic al contraindication. SPECIFIC INTERVENTION/IMAGING/CONSULTATION RECOMMENDED:The suspicious finding(s) amenable to stereo-t actic-guided vacuum assisted core biopsy. COMMUNICATION:The imaging findings were not discussed with the patient. Her referring provider has be en notified of the findings. COMMENT: The patient has been notified of the results by letter per SA requirements. Additional no tification policies are in place for contacting patient with suspicious or incomplete findings. Quality ID #225: The [place] recommends an annual screening mammogram for women aged 40 years or over. This facility utilizes a reminder system to ensure that all patients receive reminder letters, and/or direct phone calls for appointments. This includes reminders for routine scr eening mammograms, diagnostic mammograms, or other Breast Imaging Interventions when appropriate. Th is patient will be placed in the appropriate reminder system. The [place] (ACR) has developed recommendations for screening MRI of the breast s in certain patient populations, to be used in conjunction with mammography. Breast MRI surveillanc e may be appropriate for women with more than 20% lifetime risk of developing breast cancer as deter mined by genetic testing, significant family history of the disease, or history of mantle radiation f or Hodgkins Disease. ACR Practice Guidelines 2008. TECHNICAL DOCUMENTATION: FINDING NUMBER: (1) ASSESSMENT: (1) JOB ID: [id number] [employer]- All Rights Reserved Reading location - IP/workstation name: [email or web address] [id number]
== END ==
LOC: WI 10:51
PROVIDERS: ATTEND Internal Medicine
DX: R92.0 Mammographic microcalcification found on diagnostic imaging of breast (principal)

== ENCOUNTER → 2018-10-18 | Outpatient (CLI) | payer MEDICAID, OTHER ==
[2018-10-18 11:23] LABS: HEMATOCRIT 36.9 % (36.0-47.0); HEMOGLOBIN 12.4 g/dL (12.0-15.5); MEAN CORPUSCULAR HEMOGLOBIN 33.2 pg (27.0-33.4); MEAN CORPUSCULAR HGB CONC 33.7 g/dL (32.0-36.0); MEAN CORPUSCULAR VOLUME 98 fl (80-97); PLATELET COUNT 143 10^3/uL (150-450); RED BLOOD COUNT 3.75 10^6/uL (3.72-5.28); RED CELL DISTRIBUTION WIDTH 17.8 % (11.5-14.0); WHITE BLOOD COUNT 7.2 10^3/uL (4.0-10.5)
[2018-10-18 11:37] LABS: INTERNATIONAL RATION (INR) 1.07; PROTHROMBIN TIME 14.5 SEC (11.4-15.4)
[2018-10-18 11:42] LABS: ALANINE AMINOTRANSFERASE 7 U/L (9-52); ALBUMIN 3.8 g/dL (3.5-5.0); ALKALINE PHOSPHATASE 254 U/L (38-126); ANION GAP 7 (5-19); ASPARTATE AMINO TRANSFERASE 43 U/L (14-36); BILIRUBIN,DIRECT 0.4 mg/dL (0.0-0.4); BILIRUBIN,TOTAL 0.9 mg/dL (0.2-1.3); BLOOD UREA NITROGEN 12 mg/dL (7-20); CALCIUM 9.7 mg/dL (8.4-10.2); CARBON DIOXIDE 28 mmol/L (22-30); CHLORIDE 108 mmol/L (98-107); GLUCOSE 89 mg/dL (75-110); POTASSIUM 4.3 mmol/L (3.6-5.0); SODIUM 142.7 mmol/L (137-145); TOTAL PROTEIN 7.8 g/dL (6.3-8.2)
== END ==
LOC: LAB 11:07
PROVIDERS: ATTEND Internal Medicine Gastroenterology
DX: K70.30 Alcoholic cirrhosis of liver without ascites (principal)
CPT/HCPCS: 36415; 80048; 80076; 82105; 85027; 85610

== ENCOUNTER → 2018-12-13 | Outpatient (CLI) | payer MEDICAID ==
--- NOTE | 2018-12-13 11:38 | WOMENS IMAGING REPORT ---
EXAM DESCRIPTION: U/S ABDOMEN LIMITED COMPLETED DATE/TIME: 12/13/2018 10:56 am REASON FOR STUDY: K70.30 ALCOHOLIC CIRRHOSIS OF LIVER WITHOUT ASCITES K70.30 ALCOHOLIC CIRRHOSIS OF LIVER WITHOUT ASCITES COMPARISON: 02/14/2017. TECHNIQUE: Dynamic and static grayscale images acquired of the abdomen and recorded on PACS. Additio nal selected color Doppler and spectral images recorded. LIMITATIONS: None. FINDINGS: PANCREAS: No masses. Visualized pancreatic duct normal caliber. LIVER: Enlarged, measuring 18.5 cm. Heterogenous increased echogenicity. Nodular contour. No focal lesions. LIVER VASCULATURE: Normal directional flow of the main portal vein and hepatic veins. GALLBLADDER: Surgically absent. ULTRASOUND-DETECTED MONTIEL'S SIGN: Not applicable. INTRAHEPATIC DUCTS AND COMMON DUCT: CBD and intrahepatic ducts normal caliber. No filling defects. INFERIOR VENA CAVA: Normal flow. AORTA: No aneurysm. RIGHT KIDNEY: Normal size. Normal echogenicity. No solid or suspicious masses. No hydronephrosis. No calcifications. PERITONEAL AND RIGHT PLEURAL SPACE: No ascites or effusions. OTHER: No other significant findings. IMPRESSION: HEPATOMEGALY. HETEROGENOUS INCREASED ECHOGENICITY AND NODULAR CONTOUR CONSISTENT WITH C IRRHOSIS. NO FOCAL LESIONS. TECHNICAL DOCUMENTATION: JOB ID: [id number] [employer]- All Rights Reserved Reading location - IP/workstation name: [email or web address]
== END ==
LOC: WI 09:44
PROVIDERS: ATTEND Internal Medicine Gastroenterology
DX: K70.30 Alcoholic cirrhosis of liver without ascites (principal)
CPT/HCPCS: 76705

== ENCOUNTER → 2019-02-03 | Outpatient (CLI) | payer MEDICAID ==
--- NOTE | 2019-02-03 10:32 | WOMENS IMAGING REPORT ---
EXAM DESCRIPTION: 3D SCREENING MAMMO BILAT COMPLETED DATE/TIME: 02/03/2019 8:25 am REASON FOR STUDY: ROUTINE BILATERAL SCREENING;Z12.31 Z12.31 ENCNTR SCREEN MAMMOGRAM FOR MALIGNANT N EOPLASM OF RYAN COMPARISON: 2014, 2017 EXAM PARAMETERS: Standard craniocaudal and mediolateral oblique views of each breast recorded using digital acquisition and breast tomosynthesis. Read with the assistance of CAD. .[facility] - R2 Evaluation Engineer Version 9.2 LIMITATIONS: None. FINDINGS: Findings present which are benign by mammographic criteria. No suspicious masses, calcific ations or architectural distortion. Pertinent benign findings: Calcifications. Benign mammographic findings may include one or more of the following: Smooth masses, popcorn/rim/coa rse calcifications, asymmetries, post-procedure changes, and lesions with long-standing stability. IMPRESSION: Assessment: BENIGN MAMMOGRAPHIC FINDINGS. BIRADS 2 BREAST DENSITY: c. The breasts are heterogeneously dense, which may obscure small masses. BIRAD: 2 BENIGN FINDING(S) RECOMMENDATION: ROUTINE SCREENING COMMENT: The patient has been notified of the results by letter per SA requirements. Additional no tification policies are in place for contacting patient with suspicious or incomplete findings. Quality ID #225: The [employer] [place] [employer] recommends an annual screening mammogram for women aged 40 years or over. This facility utilizes a reminder system to ensure that all patients receive reminder letters, and/or direct phone calls for appointments. This includes reminders for routine scr eening mammograms, diagnostic mammograms, or other Breast Imaging Interventions when appropriate. Th is patient will be placed in the appropriate reminder system. TECHNICAL DOCUMENTATION: FINDING NUMBER: (1) ASSESSMENT: (1) JOB ID: [id number] [employer]- All Rights Reserved Reading location - IP/workstation name: [email or web address]
== END ==
LOC: WI 01-08 08:49
PROVIDERS: ATTEND Internal Medicine
DX: Z12.31 Encounter for screening mammogram for malignant neoplasm of breast (principal)
CPT/HCPCS: 77063; 77067

== ENCOUNTER 2019-05-24 10:04 | Emergency (ER) | payer MEDICAID ==
[2019-05-24 10:19] VITALS: BP 157/84
--- NOTE | 2019-05-24 11:01 | ER Document Report ---
ED General - General Chief Complaint: Skin Problem Stated Complaint: RIGHT FOOT PAIN Time Seen by Provider: 05/24/19 10:30 Primary Care Provider: FACUNDO DAVIS DPM [ACTIVE STAFF] - Follow up as needed CELESTINA HENDERSON MD [Primary Care Provider] - Follow up as needed WALDO LENZ MD [ACTIVE STAFF] - Follow up as needed Notes: Patient is complaining of pain in the medial aspect of the right foot that she says is been present for years. It is swollen and she thinks it is a cyst. Lately, it is bothering her more and is painful. Has not had any drainage. No old injury. Does have a history of gout. Denies any kind of injury. No fevers. Patient also complaining of bleeding from a lesion on the left side of her neck. She has had this fungating lesion below her left ear on the left face since she was born. It's been bleeding for the past couple of nights. There is a very tiny oozing of blood from a spot. Denies any trauma there. Once again, this lesion is been there all of her life. TRAVEL OUTSIDE OF THE [place] IN LAST 30 DAYS: No - Related Data Allergies/Adverse Reactions: No Known Allergies Allergy (Verified 11/21/17 12:19) Past Medical History - Social History Smoking Status: Never Smoker Chew tobacco use (# tins/day): Yes - 2 dips a day Frequency of alcohol use: Social Drug Abuse: Marijuana Family History: Reviewed & Not Pertinent, Malignancy Patient has suicidal ideation: No Patient has homicidal ideation: No - Past Medical History Cardiac Medical History: Reports: Hx Hypertension Endocrine Medical History: Reports: Hx Diabetes Mellitus Type 2, Hx Hyperthyroidism GI Medical History: Reports: Hx Cirrhosis, Hx Gastroesophageal Reflux Disease, Hx Liver Failure Musculoskeletal Medical History: Reports Hx Arthritis Psychiatric Medical History: Reports: Hx Depression Traumatic Medical History: Denies: Hx Fractures Past Surgical History: Reports: Hx Cholecystectomy. Denies: Hx Appendectomy, Hx Bowel Surgery, Hx Section, Hx Colostomy, Hx Coronary Artery Bypass Graft, Hx Gastric Bypass Surgery, Hx Herniorrhaphy, Hx Hysterectomy, Hx Mastectomy, Hx Pacemaker, Hx Tonsillectomy, Hx Tubal Ligation - Immunizations Hx Diphtheria, Pertussis, Tetanus Vaccination: Yes Review of Systems - Review of Systems Notes: CONSTITUTIONAL : Denies fever. CARDIOVASCULAR: Denies chest pain. RESPIRATORY: Denies cough, chest congestion, or shortness of breath. GASTROINTESTINAL: Denies abdominal pain or nausea, vomiting, or diarrhea. GENITOURINARY: Denies difficulty or painful urinating, urinary frequency, blood in urine. Extremities: small swelling mid foot. see HPI Skin: lesion left face below the ear, bleeding. See HPI. Physical Exam - Vital signs Vitals: Temp Pulse Resp BP Pulse Ox 97.9 F 62 16 157/84 H 100 05/24/19 10:15 05/24/19 10:15 05/24/19 10:15 05/24/19 10:15 05/24/19 10:15 Notes: PHYSICAL EXAMINATION: GENERAL: Well-appearing, no acute distress. HEAD: Atraumatic, normocephalic. FACE: lesion left face below the left ear. Looks like keloid or something similar, fungating lesion with small spot of blood oozing from lower portion. No drainage. NECK: Normal range of motion, supple. LUNGS: Breath sounds clear and equal bilaterally. HEART: Regular rate and rhythm without murmurs heard. ABDOMEN: Soft, nontender. No guarding or rebound or masses felt. EXTREMITIES: patient has a small 1 cm cystic structure right medial midfoot, feels like a cyst. Tender, not red or warm and no drainage. Has been there for months or longe. Not involving the jooints like gout. Course - Re-evaluation Re-evalutation: 05/26/19 12:44 Referred patient to field artillery basic regarding the apparent cyst of her foot Used silver nitrate applied to wound to achieve hemostasis for now. Advised here it is likely to bleed again. Referred to PLastic Surgeon. - Vital Signs Vital signs: Temp Pulse Resp BP Pulse Ox 97.9 F 62 16 157/84 H 100 05/24/19 10:15 05/24/19 10:15 05/24/19 10:15 05/24/19 10:15 05/24/19 10:15 Discharge - Discharge Clinical Impression: Foot pain, right, Bleeding pigmented skin lesion Condition: Stable Disposition: HOME, SELF-CARE Additional Instructions: Right foot pain It is difficult to tell what may be causing her right foot pain at this time. I think you need to see a field artillery basic. I have provided you with contact information for Dr. Davis, a local field artillery basic. Call her office to schedule an appointment regarding her foot pain and swelling. The lesion on your neck has been cauterized with silver nitrate. Hopefully that will provide you with some temporary control of the bleeding that was taking place. This lesion also needs to be seen by specialist who can consider removing it. I am providing you with the contact information for Dr. Lenz FOLLOW-UP CARE: If you have been referred to a physician for follow-up care, call the physicians office for an appointment as you were instructed or within the next two days. If you experience worsening or a significant change in your symptoms, notify the physician immediately or return to the Emergency Department at any time for re-evaluation. Referrals: CELESTINA HENDERSON MD [Primary Care Provider] - Follow up as needed FACUNDO DAVIS DPM [ACTIVE STAFF] - Follow up as needed WALDO LENZ MD [ACTIVE STAFF] - Follow up as needed
== END 2019-05-24 11:25 | disposition home or self-care (01) ==
LOC: ER 10:04
DX: M79.671 Pain in right foot (principal); M79.89 Other specified soft tissue disorders; L98.9 Disorder of the skin and subcutaneous tissue, unspecified; R58 Hemorrhage, not elsewhere classified; E11.9 Type 2 diabetes mellitus without complications; I10 Essential (primary) hypertension; F12.10 Cannabis abuse, uncomplicated; Z98.84 Bariatric surgery status; Z72.0 Tobacco use
CPT/HCPCS: 99283

== ENCOUNTER → 2019-09-05 | Outpatient (CLI) | payer MEDICARE, MEDICAID ==
[2019-09-05 11:26] LABS: ABSOLUTE LYMPHOCYTES (AUTO) 1.5 10^3/uL (0.5-4.7); ABSOLUTE MONOCYTES (AUTO) 0.9 10^3/uL (0.1-1.4); ABSOLUTE NEUT (AUTO) 3.2 10^3/uL (1.7-8.2); BASOPHILS % (AUTO) 0.6 % (0-2); EOSINOPHILS % (AUTO) 0.7 % (0-6); HEMATOCRIT 36.7 % (36.0-47.0); HEMOGLOBIN 12.5 g/dL (12.0-15.5); LYMPHOCYTES % (AUTO) 26.6 % (13-45); MEAN CORPUSCULAR HEMOGLOBIN 35.9 pg (27.0-33.4); MEAN CORPUSCULAR VOLUME 106 fl (80-97); MONOCYTES % (AUTO) 15.9 % (3-13); RED BLOOD COUNT 3.48 10^6/uL (3.72-5.28); RED CELL DISTRIBUTION WIDTH 22.8 % (11.5-14.0); SEGMENTED NEUTROPHILS % (AUTO) 56.2 % (42-78); TOTAL CELLS COUNTED % (AUTO) 100 %; WHITE BLOOD COUNT 5.7 10^3/uL (4.0-10.5)
[2019-09-05 11:32] LABS: INTERNATIONAL RATION (INR) 1.21; PROTHROMBIN TIME 15.4 SEC (11.4-15.4)
[2019-09-05 11:44] LABS: ALBUMIN 3.4 g/dL (3.5-5.0); ALKALINE PHOSPHATASE 138 U/L (38-126); ANION GAP 9 (5-19); ASPARTATE AMINO TRANSFERASE 50 U/L (14-36); BILIRUBIN,DIRECT 0.5 mg/dL (0.0-0.4); BILIRUBIN,TOTAL 2.5 mg/dL (0.2-1.3); BLOOD UREA NITROGEN 12 mg/dL (7-20); CALCIUM 8.2 mg/dL (8.4-10.2); CARBON DIOXIDE 28 mmol/L (22-30); CHLORIDE 102 mmol/L (98-107); GLUCOSE 99 mg/dL (75-110); POTASSIUM 4.1 mmol/L (3.6-5.0); TOTAL PROTEIN 7.5 g/dL (6.3-8.2)
[2019-09-05 11:50] LABS: PLATELET COUNT 67 10^3/uL (150-450)
--- NOTE | 2019-09-05 13:59 | RADIOLOGY REPORT (SQ) ---
EXAM DESCRIPTION: U/S ABDOMEN COMPLETE W/O DOP COMPLETED DATE/TIME: 09/05/2019 11:01 am REASON FOR STUDY: CIRRHOSIS (ALCOHOLIC) OF LIVER W/O ASCITES (K70.30) K70.30 ALCOHOLIC CIRRHOSIS OF LIVER WITHOUT ASCITES COMPARISON: 12/13/2018 TECHNIQUE: Dynamic and static grayscale images acquired of the abdomen and recorded on PACS. Additio nal selected color Doppler and spectral images recorded. Note: Study does not meet criteria for complete doppler/duplex scan LIMITATIONS: None. FINDINGS: PANCREAS: No masses. Visualized pancreatic duct normal caliber. LIVER: Coarsened hepatic echogenicity with nodular contour. No identified focal lesions. No intrahe patic ductal dilation. LIVER VASCULATURE: Normal directional flow of the main portal vein and hepatic veins. GALLBLADDER: Surgically absent. ULTRASOUND-DETECTED MONTIEL'S SIGN: Not applicable. INTRAHEPATIC DUCTS AND COMMON DUCT: CBD and intrahepatic ducts normal caliber. No filling defects. INFERIOR VENA CAVA: Normal flow. AORTA: No aneurysm. RIGHT KIDNEY: Mildly asymmetrically small measuring 9 cm. Normal echogenicity. No solid or suspi cious masses. No hydronephrosis. No calcifications. LEFT KIDNEY: Normal in size measuring 11.5 cm. Normal echogenicity. No solid or suspicious buddy s. No hydronephrosis. No calcifications. SPLEEN: Normal size measuring 10 cm. Adjacent hypoechoic nodule measuring 1.5 cm, likely splenule. PERITONEAL AND PLEURAL SPACES: No ascites or effusions. OTHER: No other significant finding. IMPRESSION: 1. Cirrhotic hepatic morphology. No ascites. 2. Prior cholecystectomy. 3. No other evidence of acute process. TECHNICAL DOCUMENTATION: JOB ID: [id number] [employer]- All Rights Reserved Reading location - IP/workstation name: [email or web address]
== END ==
LOC: RAD 10:58
PROVIDERS: ATTEND Internal Medicine Gastroenterology
DX: K70.30 Alcoholic cirrhosis of liver without ascites (principal)
CPT/HCPCS: 36415; 76700; 80048; 80076; 82105; 85025; 85610

== ENCOUNTER 2019-10-07 15:05 | Day surgery (SDC) | payer MEDICARE, MEDICAID ==
[2019-10-07] MEDS ORDERED: ONDANSETRON HCL INJ/PF 4 MG/2 ML SDV ONE (15:17)
[2019-10-07] MEDS ORDERED: DIPHENHYDRAMINE HCL 50 MG/ML VIAL ONE (15:17)
[2019-10-07] MEDS ORDERED: FENTANYL CITRATE INJ/PF 100 MCG/2 ML AMPUL ONE (15:17)
[2019-10-07] MEDS ORDERED: NALOXONE HCL INJ/PF 0.4 MG/1 ML SDV ONE (15:18)
[2019-10-07] MEDS ORDERED: FLUMAZENIL INJ 0.5 MG/5 ML VIAL ONE (15:18)
[2019-10-07] MEDS: MIDAZOLAM 2 MG/2 ML INJ ONE ×3 (16:38→16:47)
--- NOTE | 2019-10-07 17:04 | Operative Report ---
Operative Report DATE OF SURGERY: 10/07/19 Operative Report: Pre-op diagnosis: History of esophageal varices with previous bleeding Post-op diagnosis: 1. Esophageal varices 2. Antral gastritis Surgery: Esophagogastroduodenoscopy with biopsy and variceal rubber banding Medications: Versed 4mg Fentanyl 50mcg IV push Tissue removed: Antral biopsy for pathology Procedure: After informed consent obtained from patient, the throat was sprayed with Hurricane and conscious sedation was achieved. The upper endoscope was inserted into the esophagus under direct vision and advanced into the stomach. The duodenum was entered and examined to the second part. Endoscope was then slowly pulled out of the patient as the mucosa was examined into details. Patient tolerated procedure well. Findings Esophagus: 3 columns of varices were identified in the distal third of the esophagus. 5 rubber bands were placed Antrum: Mild erythema. Biopsy was taken Body: Normal Fundus: Normal Duodenum first part: Normal Duodenum second part: Normal Plan: Await pathology. Start omeprazole 20 mg daily and Carafate 4 times a day as needed. Repeat EGD with banding in 4 to 6 weeks OPERATION: .
[2019-10-07] MEDS ORDERED: LIDOCAINE 2% VISCOUS SOLN 15 ML UDCUP ONE (17:41)
[2019-10-07] MEDS: OXYCODONE-ACETAMINOPHEN 5-325 MG TABLET PO ONE ×2 (18:08→18:17)
[2019-10-07] MEDS ORDERED: LIDOCAINE 2% VISCOUS SOLN 15 ML UDCUP PO ONE (18:15)
[2019-10-07] MEDS ORDERED: SUCRALFATE 1 GM TABLET PO ONE (18:30)
[2019-10-07 18:35] VITALS: BP 165/87
== END 2019-10-07 18:30 | disposition home or self-care (01) ==
LOC: END 15:05
PROVIDERS: ATTEND Internal Medicine Gastroenterology
DX: I85.01 Esophageal varices with bleeding (principal); K70.30 Alcoholic cirrhosis of liver without ascites; K76.6 Portal hypertension; F10.20 Alcohol dependence, uncomplicated; Z79.899 Other long term (current) drug therapy; I10 Essential (primary) hypertension; E03.9 Hypothyroidism, unspecified; E11.9 Type 2 diabetes mellitus without complications
CPT/HCPCS: 43244; 82962; 88342 ×2; 88305 ×2; J2250; J3010; J3490; A9270 ×2; J1200; J2310; J2405

== ENCOUNTER → 2020-03-18 | Outpatient (CLI) | payer MEDICARE, MEDICAID ==
--- NOTE | 2020-03-18 09:45 | WOMENS IMAGING REPORT ---
EXAM DESCRIPTION: 3D SCREENING MAMMO BILAT IMAGES COMPLETED DATE/TIME: 03/18/2020 9:15 am REASON FOR STUDY: Z12.31 ENCOUNTER FOR SCREENING MAMMOGRAM FOR MALIGNANT NEOPLASM OF BREAST Z12.31 ENCNTR SCREEN MAMMOGRAM FOR MALIGNANT NEOPLASM OF RYAN COMPARISON: 02/03/2019, 01/30/2018, and 09/15/2014. EXAM PARAMETERS: Standard craniocaudal and mediolateral oblique views of each breast recorded using digital acquisition and breast tomosynthesis. Read with the assistance of CAD. [facility] - R2 Axle Turner Version 9.2 LIMITATIONS: None. FINDINGS: RIGHT BREAST MASSES: No suspicious masses. CALCIFICATIONS: Cluster of irregular calcifications in the superior breast, located 7 to 8 cm from th e nipple. ARCHITECTURAL DISTORTION: None. ASYMMETRY: None noted. OTHER: No other significant findings. LEFT BREAST MASSES: No suspicious masses. CALCIFICATIONS: Loose cluster of calcifications in the lateral breast, located 9 to 10 cm from the ni pple. ARCHITECTURAL DISTORTION: None. ASYMMETRY: None noted. OTHER: No other significant findings. IMPRESSION: Suspicious calcifications in both breasts. 0 Incomplete: Needs Additional Imaging Evaluation and/or prior Mammograms for Comparison. BREAST DENSITY: c. The breasts are heterogeneously dense, which may obscure small masses. BIRAD: ASSESSMENT: 0 Incomplete: Needs Additional Imaging Evaluation and/or prior Mammograms for C omparison. RECOMMENDATION: RECOMMENDED FOLLOW-UP: Recommend additional evaluation with magnification views of b oth breasts. The patient will be contacted for additional imaging. COMMENT: The patient has been notified of the results by letter per SA requirements. Additional no tification policies are in place for contacting patient with suspicious or incomplete findings. Quality ID #225: The [employer] recommends an annual screening mammogram for women aged 40 years or over. This facility utilizes a reminder system to ensure that all patients receive reminder letters, and/or direct phone calls for appointments. This includes reminders for routine scr eening mammograms, diagnostic mammograms, or other Breast Imaging Interventions when appropriate. Th is patient will be placed in the appropriate reminder system. TECHNICAL DOCUMENTATION: FINDING NUMBER: (1) ASSESSMENT: (1) JOB ID: [id number] [employer]- All Rights Reserved Reading location - IP/workstation name: [email or web address]
== END ==
LOC: WI 08:29
PROVIDERS: ATTEND Internal Medicine
DX: Z12.31 Encounter for screening mammogram for malignant neoplasm of breast (principal); R92.0 Mammographic microcalcification found on diagnostic imaging of breast
CPT/HCPCS: 77063; 77067

== ENCOUNTER → 2020-04-08 | Outpatient (CLI) | payer MEDICARE, MEDICAID | LOC: WI 08:31 | PROVIDERS: ATTEND Internal Medicine | DX: R92.0 Mammographic microcalcification found on diagnostic imaging of breast (principal) | CPT/HCPCS: 77066 ==

== ENCOUNTER → 2020-04-22 | Outpatient (CLI) | payer MEDICARE, MEDICAID ==
--- NOTE | 2020-04-22 11:50 | RADIOLOGY REPORT (SQ) ---
EXAM DESCRIPTION: MRI IAC WWO IMAGES COMPLETED DATE/TIME: 04/22/2020 9:30 am REASON FOR STUDY: SNHL, ASYMETRICAL (H90.5) H90.5 UNSPECIFIED SENSORINEURAL HEARING LOSS COMPARISON: None. TECHNIQUE: Multiplanar imaging includes noncontrasted T1, T2, FLAIR, and Diffusion with ADC map seq uences. Contrast enhanced T1 images. Images stored on PACS. CONTRAST TYPE AND DOSE: 15 mL Prohance. RENAL FUNCTION: Not indicated. ACR Type II contrast agent associated with few, if any, unconfounded cases of NSF LIMITATIONS: None. FINDINGS: ANATOMY: No anomalies. Normal vascular flow voids. Pituitary fossa normal. CSF SPACES: Normal size and contour. No hemorrhage. CEREBRUM: A few high-signal intensity lesions scattered throughout the white matter on FLAIR imaging with distribution suggesting chronic microvascular ischemic change. Sulci and gyri normal in size and contour. No evidence of hemorrhage, mass or extraaxial fluid collection. No enhancing lesions. POSTERIOR FOSSA: No signal alteration. No hemorrhage. No edema, masses or mass effect. Internal audit ory canals, cerebello-pontine angles, mastoids normal. DIFFUSION: Negative for acute or subacute infarction. INTERNAL AUDITORY CANALS AND CEREBELLOPONTINE ANGLES: No mass. COCHLEAR, VESTIBULE, SEMICIRCULAR CANALS: Normal signal and morphology. ORBITS: No masses. Globes normal. PARANASAL SINUSES: No fluid levels. Mucosa normal. OTHER: On a seen [place] a in a in a skin in IMPRESSION: NORMAL MR APPEARANCE OF THE INTERNAL AUDITORY CANALS. NO ENHANCING LESIONS. BACKGROUND OF MINIMAL MICROVASCULAR ISCHEMIC CHANGE. EVIDENCE OF ACUTE STROKE: NO. TECHNICAL DOCUMENTATION: JOB ID: [id number] [employer]- All Rights Reserved Reading location - IP/workstation name: [email or web address]-
== END ==
LOC: RAD 07:57
PROVIDERS: ATTEND Otolaryngology
DX: H90.5 Unspecified sensorineural hearing loss (principal)
CPT/HCPCS: 82565; 70553; A9576

== ENCOUNTER → 2020-05-07 | Day surgery (SDC) | payer MEDICARE, MEDICAID ==
[2020-05-07 13:08] VITALS: BP 153/67
== END ==
LOC: END 12:42
PROVIDERS: ATTEND Internal Medicine Gastroenterology
DX: Z03.818 Encounter for observation for suspected exposure to other biological agents ruled out (principal); Z53.29 Procedure and treatment not carried out because of patient's decision for other reasons; E11.9 Type 2 diabetes mellitus without complications
CPT/HCPCS: 82962; U0003; C9803; 87635

== ENCOUNTER → 2020-06-04 | Outpatient (CLI) | payer MEDICARE, MEDICAID ==
[2020-06-04 10:21] LABS: HEMATOCRIT 35.1 % (36.0-47.0); HEMOGLOBIN 12.3 g/dL (12.0-15.5); MEAN CORPUSCULAR HEMOGLOBIN 36.4 pg (27.0-33.4); MEAN CORPUSCULAR VOLUME 104 fl (80-97); PLATELET COUNT 106 10^3/uL (150-450); RED BLOOD COUNT 3.37 10^6/uL (3.72-5.28); RED CELL DISTRIBUTION WIDTH 16.7 % (11.5-14.0); WHITE BLOOD COUNT 5.7 10^3/uL (4.0-10.5)
[2020-06-04 10:31] LABS: INTERNATIONAL RATION (INR) 1.05; PROTHROMBIN TIME 13.9 SEC (11.4-15.4)
[2020-06-04 11:23] LABS: ALBUMIN 3.2 g/dL (3.5-5.0); ALKALINE PHOSPHATASE 257 U/L (38-126); ANION GAP 12 (5-19); ASPARTATE AMINO TRANSFERASE 40 U/L (14-36); BILIRUBIN,DIRECT 0.6 mg/dL (0.0-0.4); BILIRUBIN,TOTAL 1.3 mg/dL (0.2-1.3); BLOOD UREA NITROGEN 8 mg/dL (7-20); CALCIUM 8.4 mg/dL (8.4-10.2); CARBON DIOXIDE 24 mmol/L (22-30); CHLORIDE 103 mmol/L (98-107); GLUCOSE 89 mg/dL (75-110); POTASSIUM 3.5 mmol/L (3.6-5.0); TOTAL PROTEIN 7.5 g/dL (6.3-8.2)
== END ==
LOC: OD 09:13
PROVIDERS: ATTEND Internal Medicine Gastroenterology
DX: K70.30 Alcoholic cirrhosis of liver without ascites (principal)
CPT/HCPCS: 36415; 80053; 82105; 85027; 85610

== ENCOUNTER → 2020-06-18 | Day surgery (SDC) | payer MEDICARE, MEDICAID ==
[~2020-06-18] MED LIST: PROPOFOL INJ 200 MG/20 ML VIAL IV ONE
--- NOTE | 2020-06-18 15:05 | Operative Report ---
Operative Report DATE OF SURGERY: 06/18/20 Operative Report: Pre-op diagnosis: History of cirrhosis and esophageal varices Post-op diagnosis: 1. Distal esophageal varices 2. Portal gastropathy Surgery: Esophagogastroduodenoscopy with variceal rubber banding Medications: As per anesthesia Tissue removed: None Procedure: After informed consent obtained from patient, the throat was sprayed with Hurricane and conscious sedation was achieved. The upper endoscope was inserted into the esophagus under direct vision and advanced into the stomach. The duodenum was entered and examined to the second part. Endoscope was then slowly pulled out of the patient as the mucosa was examined into details. Patient tolerated procedure well. Findings Esophagus: Short columns of varices were noted in the distal esophagus. 4 rubber bands were placed with no difficulty. Antrum: Normal Body: Evidence of portal gastropathy noted Fundus: Normal Duodenum first part: Normal Duodenum second part: Normal Plan: Repeat EGD with banding in 6 months. OPERATION: .
[2020-06-18 15:40] VITALS: BP 168/84
== END ==
LOC: END 13:14
PROVIDERS: ATTEND Internal Medicine Gastroenterology
DX: I85.01 Esophageal varices with bleeding (principal); K31.89 Other diseases of stomach and duodenum; K76.6 Portal hypertension; F10.20 Alcohol dependence, uncomplicated; K70.30 Alcoholic cirrhosis of liver without ascites; Z03.818 Encounter for observation for suspected exposure to other biological agents ruled out; E11.9 Type 2 diabetes mellitus without complications; I10 Essential (primary) hypertension; E03.9 Hypothyroidism, unspecified; Z90.49 Acquired absence of other specified parts of digestive tract; Z79.899 Other long term (current) drug therapy; Z79.84 Long term (current) use of oral hypoglycemic drugs
CPT/HCPCS: 43244; 00731; U0003; J2704; C9803; 731; 87635

== ENCOUNTER 2020-06-24 14:39 | Emergency (ER) | payer MEDICARE, MEDICAID ==
--- NOTE | 2020-06-24 15:01 | ER Document Report ---
ED Medical Screen (RME) - General Chief Complaint: Abnormal Lab Results Stated Complaint: ABNORMAL LABS Time Seen by Provider: 06/24/20 14:58 Primary Care Provider: CELESTINA HENDERSON MD [Primary Care Provider] - Follow up as needed TRAVEL OUTSIDE OF THE [place] IN LAST 30 DAYS: No - HPI Notes: 06/24/20 15:07 64-year-old female to the emergency department with complaints of abnormal labs. She states she was called by Dr. Henderson and told to come to the emergency department. I did speak with Dr. Henderson and he states that her potassium is low and her creatinine is high. He states he believes that she needs IV fluids. I advised Dr. Henderson that we will evaluate the patient in the emergency department and call him if we believe that she needs admission. He agrees with the plan I performed a brief medical screening exam on the patient determined that the patient needs further evaluation and management by main side provider. I have placed initial orders to help expedite care. - Related Data Allergies/Adverse Reactions: No Known Allergies Allergy (Verified 06/24/20 14:57) Past Medical History - Social History Chew tobacco use (# tins/day): Yes Frequency of alcohol use: Occasional Drug Abuse: Bath salts Family history: Reviewed & Not Pertinent - Past Medical History Cardiac Medical History: Denies: Hx Atrial Fibrillation, Hx Congestive Heart Failure, Hx Coronary Artery Disease, Hx Heart Attack, Hx Hypercholesterolemia, Hx Hypertension, Hx Peripheral Vascular Disease, Hx Heart Murmur Pulmonary Medical History: Denies: Hx Asthma, Hx Bronchitis, Hx COPD, Hx Pneumonia Neurological Medical History: Denies: Hx Cerebrovascular Accident, Hx Seizures Endocrine Medical History: Reports: Hx Diabetes Mellitus Type 2, Hx Hyperthyroidism. Denies: Hx Graves' Disease, Hx Hypothyroidism Renal/ Medical History: Denies: Hx Peritoneal Dialysis GI Medical History: Reports: Hx Cirrhosis, Hx Gastroesophageal Reflux Disease, Hx Liver Failure. Denies: Hx Crohn's Disease, Hx Hiatal Hernia, Hx Irritable Bowel, Hx Pancreatitis, Hx Ulcer Musculoskeltal Medical History: Reports Hx Arthritis - GENERALIZED, Denies Hx Fibromyalgia, Denies Hx Muscular Dystrophy, Denies Hx Systemic Lupus Erythematosus Psychiatric Medical History: Reports: Hx Depression Denies: Hx Bipolar Disorder, Hx Post Traumatic Stress Disorder, Hx Schizophrenia Traumatic Medical History: Denies: Hx Fractures Past Surgical History: Reports: Hx Cholecystectomy. Denies: Hx Appendectomy, Hx Bowel Surgery, Hx Section, Hx Colostomy, Hx Coronary Artery Bypass Graft, Hx Gastric Bypass Surgery, Hx Herniorrhaphy, Hx Hysterectomy, Hx Mastectomy, Hx Pacemaker, Hx Tonsillectomy, Hx Tubal Ligation - Immunizations Hx Diphtheria, Pertussis, Tetanus Vaccination: No Physical Exam - Vital signs Vitals: Temp Pulse Resp BP Pulse Ox 98.3 F 63 18 152/68 H 98 06/24/20 14:52 06/24/20 14:52 06/24/20 14:52 06/24/20 14:52 06/24/20 14:52 Course - Vital Signs Vital signs: Temp Pulse Resp BP Pulse Ox 98.3 F 63 18 152/68 H 98 06/24/20 14:52 06/24/20 14:52 06/24/20 14:52 06/24/20 14:52 06/24/20 14:52 Doctor's Discharge - Discharge Referrals: CELESTINA HENDERSON MD [Primary Care Provider] - Follow up as needed
[2020-06-24 15:42] LABS: HEMATOCRIT 37.8 % (36.0-47.0); HEMOGLOBIN 12.8 g/dL (12.0-15.5); MEAN CORPUSCULAR HEMOGLOBIN 35.4 pg (27.0-33.4); MEAN CORPUSCULAR HGB CONC 33.8 g/dL (32.0-36.0); MEAN CORPUSCULAR VOLUME 105 fl (80-97); RED CELL DISTRIBUTION WIDTH 16.2 % (11.5-14.0)
[2020-06-24 15:43] LABS: PLATELET COUNT 97 10^3/uL (150-450)
[2020-06-24 15:56] LABS: ALBUMIN 3.3 g/dL (3.5-5.0); ALKALINE PHOSPHATASE 208 U/L (38-126); ANION GAP 10 (5-19); ASPARTATE AMINO TRANSFERASE 35 U/L (14-36); BILIRUBIN,DIRECT 0.5 mg/dL (0.0-0.4); BILIRUBIN,TOTAL 1.5 mg/dL (0.2-1.3); BLOOD UREA NITROGEN 13 mg/dL (7-20); CALCIUM 9.2 mg/dL (8.4-10.2); CARBON DIOXIDE 28 mmol/L (22-30); CHLORIDE 100 mmol/L (98-107); GLUCOSE 80 mg/dL (75-110); POTASSIUM 3.4 mmol/L (3.6-5.0); TOTAL PROTEIN 7.4 g/dL (6.3-8.2)
[2020-06-24 15:58] LABS: ABSOLUTE LYMPHOCYTES# (MANUAL) 2.8 10^3/uL (0.5-4.7); ABSOLUTE MONOCYTES # (MANUAL) 0.7 10^3/uL (0.1-1.4); BASOPHILS % (MANUAL) 0 % (0-2); EOSINOPHILS % (MANUAL) 1 % (0-6); LYMPHOCYTES % (MANUAL) 39 % (13-45); MONOCYTES % (MANUAL) 12 % (3-13); SEGMENTED NEUTROPHILS % (MAN) 41 % (42-78); TOTAL CELLS COUNTED 100
[2020-06-24 16:00] LABS: ANISOCYTOSIS SLIGHT; PLATELET COMMENT DECREASED; POIKILOCYTOSIS SLIGHT; POLYCHROMASIA SLIGHT; TARGET CELLS SLIGHT
[2020-06-24 16:01] LABS: OVALOCYTES SLIGHT
[2020-06-24] MEDS ORDERED: POTASSIUM CHLORIDE 10 MEQ TABLET.ER PO ONE (17:29)
--- NOTE | 2020-06-24 17:35 | ER Document Report ---
ED General - General Chief Complaint: Abnormal Lab Results Stated Complaint: ABNORMAL LABS Time Seen by Provider: 06/24/20 14:58 Primary Care Provider: CELESTINA HENDERSON MD [Primary Care Provider] - Follow up as needed Mode of Arrival: Ambulatory Information source: Patient Notes: Patient is a 64-year-old -[place] female with history of alcoholic cirrhosis coming in today for abnormal labs. Dr. Henderson called and had concerned that the patient had low potassium and high creatinine. Labs were redrawn here. Potassium is actually almost normal but magnesium level is 1.2. 3 g of magnesium IV were ordered in triage. Patient is completely asymptomatic. TRAVEL OUTSIDE OF THE [place] IN LAST 30 DAYS: No - Related Data Allergies/Adverse Reactions: No Known Allergies Allergy (Verified 06/24/20 14:57) Past Medical History - Social History Smoking Status: Never Smoker Chew tobacco use (# tins/day): Yes Frequency of alcohol use: Occasional Drug Abuse: Bath salts Family History: Reviewed & Not Pertinent, Malignancy Patient has homicidal ideation: No - Past Medical History Cardiac Medical History: Denies: Hx Atrial Fibrillation, Hx Congestive Heart Failure, Hx Coronary Artery Disease, Hx Heart Attack, Hx Hypercholesterolemia, Hx Hypertension, Hx Peripheral Vascular Disease, Hx Heart Murmur Pulmonary Medical History: Denies: Hx Asthma, Hx Bronchitis, Hx COPD, Hx Pneumonia Neurological Medical History: Denies: Hx Cerebrovascular Accident, Hx Seizures Endocrine Medical History: Reports: Hx Diabetes Mellitus Type 2, Hx Hyperthyroidism. Denies: Hx Graves' Disease, Hx Hypothyroidism Renal/ Medical History: Denies: Hx Peritoneal Dialysis GI Medical History: Reports: Hx Cirrhosis, Hx Gastroesophageal Reflux Disease, Hx Liver Failure. Denies: Hx Crohn's Disease, Hx Hiatal Hernia, Hx Irritable Bowel, Hx Pancreatitis, Hx Ulcer Musculoskeletal Medical History: Reports Hx Arthritis - GENERALIZED, Denies Hx Fibromyalgia, Denies Hx Muscular Dystrophy, Denies Hx Systemic Lupus Erythematosus Psychiatric Medical History: Reports: Hx Depression Denies: Hx Bipolar Disorder, Hx Post Traumatic Stress Disorder, Hx Schizophrenia Traumatic Medical History: Denies: Hx Fractures Past Surgical History: Reports: Hx Cholecystectomy. Denies: Hx Appendectomy, Hx Bowel Surgery, Hx Section, Hx Colostomy, Hx Coronary Artery Bypass Graft, Hx Gastric Bypass Surgery, Hx Herniorrhaphy, Hx Hysterectomy, Hx Mastectomy, Hx Pacemaker, Hx Tonsillectomy, Hx Tubal Ligation - Immunizations Hx Diphtheria, Pertussis, Tetanus Vaccination: No Review of Systems - Review of Systems Notes: Constitutional: No fevers. No chills. EENT: No eye redness. No eye pain. No ear pain. No sore throat. Cardiovascular: No chest pain. No palpitations. Respiratory: No cough. No shortness of breath. No respiratory distress. Gastrointestinal: No abdominal pain. No nausea, vomiting, or diarrhea. Genitourinary: Atraumatic. No lesions. No pain. No discharge. Musculoskeletal: Atraumatic. No swelling. No deformities. Skin: No rash or lesions. Lymphatic: No swollen lymph nodes. Neurologic: No headache. No syncope. Psychiatric: No suicidal or homicidal ideation. Physical Exam - Vital signs Vitals: Temp Pulse Resp BP Pulse Ox 98.3 F 63 18 152/68 H 98 06/24/20 14:52 06/24/20 14:52 06/24/20 14:52 06/24/20 14:52 06/24/20 14:52 - Notes Notes: General: Well-developed, well-nourished. In no acute distress. Non-toxic appearing. Cardiac: Well-perfused. Regular rate and rhythm. No murmurs, rubs, or gallops. Pulmonary: No respiratory distress. No cyanosis. Bilateral lung fiels are clear to auscultation. Abdominal: Non-distended. Non-rigid. Bowels sounds are present in all four quadrants. No guarding or rebound. HEENT: Head is atraumatic. Conjunctivae not reddened. No tearing. PERRL. EOMI. Orbits atraumatic. No periorbital swelling or erythema. Oropharynx is without erythema, swelling, or exudates. Neck: Supple. No adenopathy. No meningismus. Dermatologic: Warm with good turgor. No rash. Atraumatic. Chest: Atraumatic. No chest wall tenderness to palpation. Musculoskeletal: Moves all extremities well. No range of motion deficits. no muscular or joint tenderness. No paraspinal muscle tenderness. no midline spinal tenderness or step-off. Genitourinary: Examination deferred Neurologic: No gross neurologic deficits. Psychiatric: Normal mood. Course - Re-evaluation Re-evalutation: 06/24/20 23:24 Repeat magnesium 2.4 will discharge - Vital Signs Vital signs: Temp Pulse Resp BP Pulse Ox 98.3 F 63 21 H 184/62 H 100 06/24/20 14:52 06/24/20 14:52 06/24/20 22:31 06/24/20 22:31 06/24/20 22:31 - Laboratory Result Diagrams: 06/24/20 15:30 06/24/20 15:30 Laboratory results interpreted by me: 06/24/20 06/24/20 06/24/20 15:30 15:30 22:30 RBC 3.60 L MCV 105 H MCH 35.4 H RDW 16.2 H Plt Count 97 L Seg Neuts % (Manual) 41 L Potassium 3.4 L Est GFR ( Amer) 56 L Est GFR (MDRD) Non-Af 46 L Magnesium 1.2 L* 2.4 H D Total Bilirubin 1.5 H Direct Bilirubin 0.5 H Alkaline Phosphatase 208 H Albumin 3.3 L - EKG Interpretation by Me EKG shows normal: Sinus rhythm, [place], Intervals, QRS Complexes, ST-T Waves Rate: Normal Rhythm: NSR Discharge - Discharge Clinical Impression: Hypomagnesemia Condition: Good Disposition: HOME, SELF-CARE Additional Instructions: During your stay in the emergency department, you received magnesium and you are now within a normal level. He also received a small dose of potassium. Please follow-up with Dr. Henderson in the next 1 to 2 days for recheck. Referrals: CELESTINA HENDERSON MD [Primary Care Provider] - Follow up as needed
[2020-06-24] MEDS: MAGNESIUM SULFATE/D5W 1 GM/100 ML RTUPB IV SCH ×3 (17:51→21:03)
--- NOTE | 2020-06-24 18:03 | EKG REPORT ---
SEVERITY:- BORDERLINE ECG - SINUS RHYTHM LVH BY VOLTAGE : Confirmed by: Remington Vazquez MD 24-Jun-2020 18:02:20
[2020-06-24 23:30] VITALS: BP 165/90
== END 2020-06-24 23:38 | disposition home or self-care (01) ==
LOC: ER 14:39
DX: E83.42 Hypomagnesemia (principal); E11.9 Type 2 diabetes mellitus without complications; F19.10 Other psychoactive substance abuse, uncomplicated; Z72.0 Tobacco use
CPT/HCPCS: 93005; 99284; 96365; 96366; 36415; 83735; 85025; 80053; 93010; J3475; A9270

== ENCOUNTER → 2020-07-16 | Outpatient (CLI) | payer MEDICARE, MEDICAID ==
--- NOTE | 2020-07-16 08:22 | RADIOLOGY REPORT (SQ) ---
EXAM DESCRIPTION: U/S ABDOMEN LIMITED W/O DOP IMAGES COMPLETED DATE/TIME: 07/16/2020 7:56 am REASON FOR STUDY: K70.30 ALCOHOLIC CIRRHOSIS OF LIVER WITHOUT ASCITES K70.30 ALCOHOLIC CIRRHOSIS OF LIVER WITHOUT ASCITES COMPARISON: 09/05/2019 TECHNIQUE: Dynamic and static grayscale images acquired of the abdomen and recorded on PACS. Additio nal selected color Doppler and spectral images recorded. LIMITATIONS: None. FINDINGS: PANCREAS: No masses. Visualized pancreatic duct normal caliber. LIVER: Liver measures 18.5 cm in cranial caudal dimensions. Heterogeneous echotexture. Slightly nod ular contour. LIVER VASCULATURE: Normal directional flow of the main portal vein and hepatic veins. GALLBLADDER: Surgically absent. ULTRASOUND-DETECTED MONTIEL'S SIGN: Negative. INTRAHEPATIC DUCTS AND COMMON DUCT: CBD and intrahepatic ducts normal caliber. No filling defects. AORTA: No aneurysm. RIGHT KIDNEY: Normal size. Normal echogenicity. No solid or suspicious masses. No hydronephrosis. No calcifications. PERITONEAL AND RIGHT PLEURAL SPACE: No ascites or effusions. OTHER: No other significant findings. IMPRESSION: Coarse echogenicity throughout the liver with nodular contour. Mild hepatomegaly. Find ings are consistent with clinical diagnosis of cirrhosis. Prior cholecystectomy. TECHNICAL DOCUMENTATION: JOB ID: [id number] 2010 [employer]- All Rights Reserved Reading location - IP/workstation name: [email or web address]
--- OUTSIDE RECORDS SUMMARY | 2020-07-19 08:54 | XMS REPORT ---
:1955 Author Organization [facility] Address [facility] [place] [address] [place] [address] Care Team Providers Name Role Phone Gloria Reyes Primary Care Physician Unavailable Allergies, Adverse Reactions, Alerts This patient has no known allergies or adverse reactions. Medications Ordered Filled Start Stop Current Ordering Indication Dosage Frequency Signature Comments Components Medication Medication Date Date Medication? Clinician (SIG) Name Name Silenor 6 Yes QD 1 tablet MG 7-08 at bedtime 00:00: Orally 00 Once a day Vitamin 2020- No QD 1 tablet D-400 10 4-08 09-30 Orally MCG (400 00:00: 00:00 Once a day UNIT) 00 :00 Folic Acid Yes QD 1 tablet 1 MG 3-23 Orally 00:00: Once a day 00 Thiamine Yes QD 1 tablet HCl 100 MG 3-23 Orally 00:00: Once a day 00 Propranolol 2017-09 Yes BID 1 tablet HCl 40 mg 2-06 Orally 00:00: twice a 00 day Tramadol 2017-09 Yes 1 tablet HCl 50 mg 2-06 as needed 00:00: Orally 00 every 8 hrs Metformin 2017-09 No QD 1 tablet HCl 1000 mg 0-19 with a 00:00: meal 00 Orally Once a day Glimepiride 2017-09 No QD 1 tablet 2 MG 0-19 with 00:00: breakfast 00 or the first main meal of the day Orally Once a day Pioglitazon 2017-09 No QD 1 tablet e HCl 15 MG 0-19 Orally 00:00: Once a day 00 Accu-Chek No TID as Corinne Plus 9-25 directed w/Device 00:00: In Vitro 00 Three times a day Losartan No QD 1 tablet Potassium 8-14 Orally 100 mg 00:00: Once a day 00 Lantus Yes QD 20 units SoloStar 8-09 Subcutaneo 100 UNIT/ML 00:00: us daily 00 Propranolol No BID 1 tablet HCl 20 MG Orally Twice a day Levothyroxi Yes QD 1 tablet ne Sodium Orally 75 MCG daily Ergocalcife Yes 1 capsule rol [id number] Orally UNIT weekly Allopurinol Yes QD 2 tablets 100 mg Orally Once a day Irbesartan No QD 1 tablet 300 MG Orally Once a day Glimepiride Yes QD 1 tablet 2 mg with breakfast or the first main meal of the day Orally Once a day Pioglitazon Yes QD 1 tablet e HCl 15 mg Orally Once a day Losartan Yes QD 1 tablet Potassium Orally 100 mg Once a day Metformin Yes QD 1 tablet HCl 1000 mg with a meal Orally Once a day Problems Condition Condition Condition Status Onset Resolution Last Treatin g Comments Name Details Category Date Date Treatment Clinician Date Body mass Body mass Problem Active index 30.00 index (BMI) 8-31 to 34.99 32.0-32.9, 00:00: adult 00 Insomnia Insomnia, Problem Active unspecified 708 00:00: 00 Nondependen Alcohol Problem Active t alcohol abuse, in 5-11 abuse in remission 00:00: remission 00 Acute Alcoholic Problem Active alcoholic hepatitis 3-17 liver without 00:00: disease ascites 00 Adult Encounter Problem Active health for general 1 examination adult 00:00: medical 00 examination without abnormal findings 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 Body mass Body mass Problem Active 2018-09 index 30.00 index (BMI) 1-17 to 34.99 33.0-33.9, 00:00: adult 00 Hypothyroid Hypothyroid Problem Active ism ism, 9-25 unspecified 00:00: 00 Body mass Body mass Problem Active index 30.00 index (BMI) 5-15 to 34.99 34.0-34.9, 00:00: adult 00 Essential Essential Problem Active 2017-09 hypertensio (primary) 2-06 n hypertensio 00:00: n 00 Polyarthrit Other Problem Active 2017-09 is polyosteoar 2-06 thritis 00:00: 00 Disorder of Other Problem Active 2017-09 plasma disorders 0-13 protein of 00:00: metabolism plasma-prot 00 ein metabolism, not elsewhere classified Lumbosacral Radiculopat Problem Active radiculopat hy, 8-09 hy lumbosacral 00:00: region 00 Type II Type 2 Problem Active diabetes diabetes 11-28 mellitus mellitus 00:00: without without 00 complicatio complicatio n ns Alcoholic Alcoholic Problem Active cirrhosis cirrhosis 11-28 of liver 00:00: without 00 ascites 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8-97.4 MCH (test code = MCH) 38.4 26.6-33.0 MCHC (test code = MCHC) 31.0 32-34.9 RDW (test code = RDW) 19.5 11.8-15.5 PLATELET (test code = PLATELET) . 147-365 SEGMENTED% (test code = SEGMENTED%) 57.9 43.7-73.5 SEGMENTED# (test code = SEGMENTED#) 3.4 1.9-7.5 LYMPHOCYTES% (test code = LYMPHOCYTES%) 29.50 17.9-45. 1 LYMPHOCYTES# (test code = LYMPHOCYTES#) 1.7 1-4 MONOCYTES% (test code = MONOCYTES%) 10.0 3.8-10 MONOCYTES# (test code = MONOCYTES#) 0.6 0.2-0.9 EOSINOPHILS% (test code = EOSINOPHILS%) 1.30 0.0-6.1 EOSINOPHILS# (test code = EOSINOPHILS#) 0.08 0.0-0.5 BASOPHILS% (test code = BASOPHILS%) 1.30 0.0-0.9 BASOPHILS# (test code = BASOPHILS#) 0.10 0.0-0.1 COMPREHENSIVE [id number] 00:00:00 Test Item Value Reference Range Comments SODIUM (test code = SODIUM) 142 136-145 POTASSIUM (test code = POTASSIUM) 3.9 3.5-5.1 CHLORIDE (test code = CHLORIDE) 104 98-107 CARBONDIOXIDE (test code = CARBONDIOXIDE) 25.0 17-32 GLUCOSE (test code = GLUCOSE) 126 70-99 BUN (test code = BUN) 9 7-25 CREATININESERUM (test code = CREATININESERUM) 1.03 0. 5-1.2 BUN/CREATININERATIO (test code = BUN/CREATININERATIO) 9 8-28 BILIRUBIN,Total (test code = BILIRUBIN,Total) 1.6 0. 2-1.0 CALCIUM (test code = CALCIUM) 8.7 8.6-10.5 PROTEINTOTAL (test code = PROTEINTOTAL) 7.1 6.6-8.2 ALBUMIN (test code = ALBUMIN) 2.7 3.5-5.7 ALK.PHOSPHATASE (test code = ALK.PHOSPHATASE) 135 34 -104 ALT(SGPT) (test code = ALT(SGPT)) 8 7-52 AST(SGOT) (test code = AST(SGOT)) 43 11-39 GLOBULIN (test code = GLOBULIN) 4.4 1.8-4.0 A/GRATIO (test code = A/GRATIO) 0.6 0.8-2.7 GLOMERULARFILT.RATE (test code = GLOMERULARFILT.RATE) 57 >60 HEMOGLOBIN A1c (HGB AIC)2020-03-10 00:00:00 Test Item Value Reference Range Comments [id number](HGBAIC) (test code = 4548-4) 5.0 4.0-5 .6 LIPID [id number] 00:00:00 Test Item Value Reference Range Comments CHOLESTEROL (test code = CHOLESTEROL) 137 <200 TRIGLYCERIDES (test code = TRIGLYCERIDES) 73 10-149 HDLCHOLESTEROL (test code = HDLCHOLESTEROL) 56 40-1 99 LDL/HDLRATIO (test code = LDL/HDLRATIO) 1.18 0.00-4.9 7 LDLCHOLESTEROL,calc. (test code = 66 <100 LDLCHOLESTEROL,calc.) VLDLCHOLESTEROL,calc. (test code = 15 5-40 VLDLCHOLESTEROL,calc.) CHOLESTEROL/HDLRATIO (test code = 2.45 2.00-5.00 CHOLESTEROL/HDLRATIO) NON-HDLCHOLESTEROL (test code = NON-HDLCHOLESTEROL) 81 0-159 URIC [id number] 00:00:00 Test Item Value Reference Range Comments URICACID (test code = URICACID) 3.3 2.3-6.6 VITAMIN B12 AND [id number] 00:00:00 Test Item Value Reference Range Comments [id number] (test code = TXSGVLWI09) 351 180-914 FOLATE (test code = FOLATE) 3.0 5.9-24.8 VITAMIN B1(THIAMINE)2019-11-18 00:00:00 Test Item Value Reference Range Comments VITAMINB1(THIAMINE) (test code = VITAMINB1(THIAMINE)) 5.1 8.0-30.0 COMPREHENSIVE [id number] 00:00:00 Test Item Value Reference Range Comments SODIUM (test code = SODIUM) 142 136-145 POTASSIUM (test code = POTASSIUM) 3.7 3.5-5.1 CHLORIDE (test code = CHLORIDE) 103 98-107 CARBONDIOXIDE (test code = CARBONDIOXIDE) 26.0 17-32 GLUCOSE (test code = GLUCOSE) 124 70-99 BUN (test code = BUN) 10 7-25 CREATININESERUM (test code = CREATININESERUM) 0.91 0. 5-1.2 BUN/CREATININERATIO (test code = BUN/CREATININERATIO) 11 8-28 BILIRUBIN,Total (test code = BILIRUBIN,Total) 1.7 0. 2-1.0 CALCIUM (test code = CALCIUM) 8.4 8.6-10.5 PROTEINTOTAL (test code = PROTEINTOTAL) 6.9 6.6-8.2 ALBUMIN (test code = ALBUMIN) 3.0 3.5-5.7 ALK.PHOSPHATASE (test code = ALK.PHOSPHATASE) 106 34 -104 ALT(SGPT) (test code = ALT(SGPT)) 11 7-52 AST(SGOT) (test code = AST(SGOT)) 59 11-39 GLOBULIN (test code = GLOBULIN) 3.9 1.8-4.0 A/GRATIO (test code = A/GRATIO) 0.8 0.8-2.7 GLOMERULARFILT.RATE (test code = GLOMERULARFILT.RATE) 66 >60 HEPATITIS [id number] 00:00:00 Test Item Value Reference Range Comments HEPATITISATOTALAB (test code = React NONREACTIVE HEPATITISATOTALAB) HEPATITISBSURF.AG. (test code = NONREACTIVE NONREACTIVE HEPATITISBSURF.AG.) HEPATITISBSURFACEAB (test code = > 1000.0 0-9.9 HEPATITISBSURFACEAB) HEPATITISBCOREANTIBODY (test code = React NON REAC HEPATITISBCOREANTIBODY) HIV COMBO AG/AB 4TH [id number] 00:00:00 Test Item Value Reference Range Comments HIVCOMBOAG/RF6MUXFF (test code = NONREACTIVE NONREACTIVE HIVCOMBOAG/FY9FKCIH) CBC + AUTOMATED [id number] 00:00:00 Test Item Value Reference Range Comments WBC (test code = WBC) 7.2 4.2-11.8 RBC (test code = RBC) 3.47 3.8-5.0 HEMOGLOBIN (test code = HEMOGLOBIN) 12.0 11.3-14.9 HEMATOCRIT (test code = HEMATOCRIT) 38 34-44.3 MCV (test code = MCV) 110 80.8-97.4 MCH (test code = MCH) 34.7 26.6-33.0 MCHC (test code = MCHC) 31.6 32-34.9 RDW (test code = RDW) 25.4 11.8-15.5 PLATELET (test code = PLATELET) 90 147-365 MPV (test code = MPV) 9.82 6.00-12.00 SEGMENTED% (test code = SEGMENTED%) 56.5 43.7-73.5 SEGMENTED# (test code = SEGMENTED#) 4.1 1.9-7.5 LYMPHOCYTES% (test code = LYMPHOCYTES%) 31.83 17.9-45. 1 LYMPHOCYTES# (test code = LYMPHOCYTES#) 2.3 1-4 MONOCYTES% (test code = MONOCYTES%) 10.2 3.8-10 MONOCYTES# (test code = MONOCYTES#) 0.7 0.2-0.9 EOSINOPHILS% (test code = EOSINOPHILS%) 1.18 0.0-6.1 EOSINOPHILS# (test code = EOSINOPHILS#) 0.08 0.0-0.5 BASOPHILS% (test code = BASOPHILS%) 0.32 0.0-0.9 BASOPHILS# (test code = BASOPHILS#) 0.02 0.0-0.1 COMPREHENSIVE [id number] 00:00:00 Test Item Value Reference Range Comments SODIUM (test code = SODIUM) 143 136-145 POTASSIUM (test code = POTASSIUM) 3.7 3.5-5.1 CHLORIDE (test code = CHLORIDE) 103 98-107 CARBONDIOXIDE (test code = CARBONDIOXIDE) 25.0 17-32 GLUCOSE (test code = GLUCOSE) 72 70-99 BUN (test code = BUN) 13 7-25 CREATININESERUM (test code = CREATININESERUM) 0.77 0. 5-1.2 BUN/CREATININERATIO (test code = BUN/CREATININERATIO) 17 8-28 BILIRUBIN,Total (test code = BILIRUBIN,Total) 1.6 0. 2-1.0 CALCIUM (test code = CALCIUM) 8.2 8.6-10.5 PROTEINTOTAL (test code = PROTEINTOTAL) 6.6 6.6-8.2 ALBUMIN (test code = ALBUMIN) 2.9 3.5-5.7 ALK.PHOSPHATASE (test code = ALK.PHOSPHATASE) 121 34 -104 ALT(SGPT) (test code = ALT(SGPT)) 8 7-52 AST(SGOT) (test code = AST(SGOT)) 42 11-39 GLOBULIN (test code = GLOBULIN) 3.7 1.8-4.0 A/GRATIO (test code = A/GRATIO) 0.8 0.8-2.7 GLOMERULARFILT.RATE (test code = GLOMERULARFILT.RATE) 80 >60 HEMOGLOBIN A1c (HGB AIC)2019-09-04 00:00:00 Test Item Value Reference Range Comments [id number](HGBAIC) (test code = 4548-4) 5.9 4.0-5 .6 LIPID [id number] 00:00:00 Test Item Value Reference Range Comments CHOLESTEROL (test code = CHOLESTEROL) 142 <200 TRIGLYCERIDES (test code = TRIGLYCERIDES) 168 10-149 HDLCHOLESTEROL (test code = HDLCHOLESTEROL) 57 40-1 99 LDL/HDLRATIO (test code = LDL/HDLRATIO) 0.89 0.00-4.9 7 LDLCHOLESTEROL,calc. (test code = 51 <100 LDLCHOLESTEROL,calc.) VLDLCHOLESTEROL,calc. (test code = 34 5-40 VLDLCHOLESTEROL,calc.) CHOLESTEROL/HDLRATIO (test code = 2.49 2.00-5.00 CHOLESTEROL/HDLRATIO) NON-HDLCHOLESTEROL (test code = NON-HDLCHOLESTEROL) 85 0-159 URIC [id number] 00:00:00 Test Item Value Reference Range Comments URICACID (test code = URICACID) 5.5 2.3-6.6 TSH + FREE [id number] 00:00:00 Test Item Value Reference Range Comments [id number] (test code = [id number]) 1.400 0.340-4.410 FREET4 (test code = FREET4) 0.95 0.61-1.12 CBC + AUTOMATED [id number] 00:00:00 Test Item Value Reference Range Comments WBC (test code = WBC) 6.8 4.2-11.8 RBC (test code = RBC) 3.82 3.8-5.0 HEMOGLOBIN (test code = HEMOGLOBIN) 12.7 11.3-14.9 HEMATOCRIT (test code = HEMATOCRIT) 40 34-44.3 MCV (test code = MCV) 106 80.8-97.4 MCH (test code = MCH) 33.1 26.6-33.0 MCHC (test code = MCHC) 31.3 32-34.9 RDW (test code = RDW) 23.5 11.8-15.5 PLATELET (test code = PLATELET) 119 147-365 MPV (test code = MPV) 9.93 6.00-12.00 SEGMENTED% (test code = SEGMENTED%) 53.3 43.7-73.5 SEGMENTED# (test code = SEGMENTED#) 3.6 1.9-7.5 LYMPHOCYTES% (test code = LYMPHOCYTES%) 35.54 17.9-45. 1 LYMPHOCYTES# (test code = LYMPHOCYTES#) 2.4 1-4 MONOCYTES% (test code = MONOCYTES%) 10.0 3.8-10 MONOCYTES# (test code = MONOCYTES#) 0.7 0.2-0.9 EOSINOPHILS% (test code = EOSINOPHILS%) 0.95 0.0-6.1 EOSINOPHILS# (test code = EOSINOPHILS#) 0.06 0.0-0.5 BASOPHILS% (test code = BASOPHILS%) 0.25 0.0-0.9 BASOPHILS# (test code = BASOPHILS#) 0.02 0.0-0.1 COMPREHENSIVE [id number] 00:00:00 Test Item Value Reference Range Comments SODIUM (test code = SODIUM) 143 136-145 POTASSIUM (test code = POTASSIUM) 4.2 3.5-5.1 CHLORIDE (test code = CHLORIDE) 105 98-107 CARBONDIOXIDE (test code = CARBONDIOXIDE) 26.0 17-32 GLUCOSE (test code = GLUCOSE) 83 70-99 BUN (test code = BUN) 9 7-25 CREATININESERUM (test code = CREATININESERUM) 0.89 0. 5-1.2 BUN/CREATININERATIO (test code = BUN/CREATININERATIO) 10 8-28 BILIRUBIN,Total (test code = BILIRUBIN,Total) 0.8 0. 2-1.0 CALCIUM (test code = CALCIUM) 8.9 8.6-10.5 PROTEINTOTAL (test code = PROTEINTOTAL) 7.4 6.6-8.2 ALBUMIN (test code = ALBUMIN) 3.2 3.5-5.7 ALK.PHOSPHATASE (test code = ALK.PHOSPHATASE) 131 34 -104 ALT(SGPT) (test code = ALT(SGPT)) 6 7-52 AST(SGOT) (test code = AST(SGOT)) 33 11-39 GLOBULIN (test code = GLOBULIN) 4.2 1.8-4.0 A/GRATIO (test code = A/GRATIO) 0.8 0.8-2.7 GLOMERULARFILT.RATE (test code = GLOMERULARFILT.RATE) 68 >60 HEMOGLOBIN A1c (HGB AIC)2019-05-28 00:00:00 Test Item Value Reference Range Comments [id number](HGBAIC) (test code = 4548-4) 6.1 4.0-5 .6 LIPID [id number] 00:00:00 Test Item Value Reference Range Comments CHOLESTEROL (test code = CHOLESTEROL) 162 <200 TRIGLYCERIDES (test code = TRIGLYCERIDES) 100 10-149 HDLCHOLESTEROL (test code = HDLCHOLESTEROL) 65 40-1 99 LDL/HDLRATIO (test code = LDL/HDLRATIO) 1.18 0.00-4.9 7 LDLCHOLESTEROL,calc. (test code = 77 <100 LDLCHOLESTEROL,calc.) VLDLCHOLESTEROL,calc. (test code = 20 5-40 VLDLCHOLESTEROL,calc.) CHOLESTEROL/HDLRATIO (test code = 2.49 2.00-5.00 CHOLESTEROL/HDLRATIO) NON-HDLCHOLESTEROL (test code = NON-HDLCHOLESTEROL) 97 0-159 MICROALBUMIN/CREATINE [id number] 00:00:00 Test Item Value Reference Range Comments MICROALB/CREATRATIO (test code = 68312-6) 105 0-29 CREATININE,URINE (test code = CREATININE,URINE) 171 20-300 TSH + FREE [id number] 00:00:00 Test Item Value Reference Range Comments [id number] (test code = [id number]) 1.615 0.340-4.410 FREET4 (test code = FREET4) 1.00 0.61-1.12 URIC [id number] 00:00:00 Test Item Value Reference Range Comments URICACID (test code = URICACID) 3.6 2.3-6.6 [id number] 00:00:00 Test Item Value Reference Range Comments COLOR (test code = COLOR) GARCIA YELLOW CLARITY (test code = CLARITY) CLOUDY CLEAR SPECIFICGRAVITY (test code = SPECIFICGRAVITY) 1.020 1. 005-1.025 pH (test code = pH) 6.0 5.0-8.5 URINEPROTEIN (test code = URINEPROTEIN) NEGATIVE NEGATIVE URINEGLUCOSE (test code = URINEGLUCOSE) NEGATIVE NEGATIVE URINEKETONE (test code = URINEKETONE) NEGATIVE NEGATIVE URINEBILIRUBIN (test code = URINEBILIRUBIN) NEGATIVE NEGA TIVE URINEBLOOD (test code = URINEBLOOD) NEGATIVE NEGATIVE URINENITRITE (test code = URINENITRITE) NEGATIVE NEGATIVE UROBILINOGEN (test code = UROBILINOGEN) >=4.0 0.2-1.0 LEUKOCYTE (test code = LEUKOCYTE) NEGATIVE NEGATIVE *PleaseNote: (test code = *PleaseNote:) Assessments Condition Name Status Diagnosis Date Treating Clinici an - 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[place], [place]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 E11.42 - Insomnia, unspecified G47.00 Active [place], [place] - Body mass index (BMI) 32.0-32.9, adult Active [place], [place] Z68.32 - Alcoholic cirrhosis of liver without Active [place], [place] ascites K70.30 - Type 2 diabetes mellitus without Active [place], [place] complications E11.9 - Encounter for screening for infections Active [place], [place] with a predominantly sexual mode of transmission Z11.3 - Alcoholic hepatitis without ascites Active [place], [place] K70.10 - Alcohol abuse, in remission F10.11 Active [place], [place] - Essential (primary) hypertension I10 Active [place], [place] - Encounter for general adult medical Active [place], [place] examination without abnormal findings Z00.00 - 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[place], [place]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 E11.42 - Essential (primary) hypertension I10 Active [place], [place] - Type 2 diabetes mellitus without Active [place], [place] complications E11.9 - Hypothyroidism, unspecified E03.9 Active [place], [place] - Body mass index (BMI) 33.0-33.9, adult Active [place], [place] Z68.33 - Essential (primary) hypertension I10 Active [place], [place] - Type 2 diabetes mellitus without Active [place], [place] complications E11.9 - Essential (primary) hypertension I10 Active [place], [place] - Body mass index (BMI) 34.0-34.9, adult Active [place], [place] Z68.34 - Unilateral primary osteoarthritis, left Active [place], [place] knee M17.12 - Essential (primary) hypertension I10 Active [place], [place] - Type 2 diabetes mellitus without Active [place], [place] complications E11.9 - Other polyosteoarthritis M15.8 Active [place], [place] - Type 2 diabetes mellitus without Active [place], [place] complications E11.9 - Type 2 diabetes mellitus without Active [place], [place] complications E11.9 - Essential (primary) hypertension I10 Active [place], [place] - Radiculopathy, lumbosacral region M54.17 Active [place], [place] - Type 2 diabetes mellitus without Active [place], [place] complications E11.9 - Alcoholic cirrhosis of liver without Active [place], [place] ascites K70.30 - Other disorders of plasma-protein Active [place], [place] metabolism, not elsewhere classified E88.09 - Type 2 diabetes mellitus without Active [place], [place] complications E11.9 - Encounter for screening mammogram for Active [place], [place] malignant neoplasm of breast Z12.31 - Alcoholic cirrhosis of liver without Active [place], [place] ascites K70.30 - Type 2 diabetes mellitus without Active [place], [place] complications E11.9 - Alcoholic cirrhosis of liver without Active [place], [place] ascites K70.30 - Radiculopathy, lumbar region M54.16 Active [place], [place] Encounters Start End Encounter Admission Attending Care Care Encounter Date/Time Date/Time Type Type Clinicians Facility Department ID 2020-06-10 2020-06-10 [id number] 00:00:00 00:00:00 PA PA 2020-04-25 2020-04-25 [facility] [id number] 00:00:00 00:00:00 PA PA 2020-03-12 2020-03-12 [facility] [id number] 00:00:00 00:00:00 PA PA 2020-03-10 2020-03-10 [facility] [place] [id number] [facility]:00:00 00:00:00 PA 2020-03-10 2020-03-10 [id number] 00:00:00 00:00:00 PA PA 2020-02-17 2020-02-17 [facility] [place] [id number] 00:00:00 00:00:00 PA 2019-12-25 2019-12-25 [facility] [id number] 00:00:00 00:00:00 PA PA 2019-12-25 2019-12-25 [facility] [id number] 00:00:00 00:00:00 PA PA 2019-12-08 2019-12-08 [facility] [id number] 00:00:00 00:00:00 PA PA 2019-11-18 2019-11-18 [id number] 00:00:00 00:00:00 PA PA 2019-11-13 2019-11-13 [id number] 00:00:00 00:00:00 PA PA 2019-09-04 2019-09-04 [facility] [id number] 00:00:00 00:00:00 PA PA 2019-05-28 2019-05-28 [facility] 30 [id number] 00:00:00 00:00:00 PA PA 2018-11-13 2018-11-13 [facility] [id number] 00:00:00 00:00:00 PA PA 2018-10-02 2018-10-02 [facility] 28 [id number] 00:00:00 00:00:00 PA PA 2018-08-15 2018-08-15 [facility] 28 [id number] 00:00:00 00:00:00 PA PA 2018-08-08 2018-08-08 [facility] 26 [id number] 00:00:00 00:00:00 PA PA 2018-07-24 2018-07-24 [facility] 28 [id number] 00:00:00 00:00:00 PA PA 2018-07-17 2018-07-17 [facility] 28 [id number] 00:00:00 00:00:00 PA PA 2018-06-21 2018-06-21 [facility] [id number] 00:00:00 00:00:00 PA PA 2018-06-21 2018-06-21 [facility] 26 [id number] 00:00:00 00:00:00 PA PA 2018-05-27 2018-05-27 [facility] 26 [id number] 00:00:00 00:00:00 PA PA 2018-05-07 2018-05-07 [facility] 26 [id number] 00:00:00 00:00:00 PA PA 2018-04-16 2018-04-16 [facility] 26 [id number] 00:00:00 00:00:00 PA PA 2018-04-15 2018-04-15 [facility] 26 [id number] 00:00:00 00:00:00 PA PA 2018-04-11 2018-04-11 [facility] 26 [id number] 00:00:00 00:00:00 PA PA 2018-04-11 2018-04-11 [facility] 25 [id number] 00:00:00 00:00:00 PA PA 2018-04-11 2018-04-11 [facility] 26 [id number] 00:00:00 00:00:00 PA PA 2018-02-08 2018-02-08 [facility] 25 [id number] 00:00:00 00:00:00 PA PA 2018-01-09 2018-01-09 [facility] 24 [id number] 00:00:00 00:00:00 PA PA 2017-11-28 2017-11-28 [facility] [id number] 00:00:00 00:00:00 PA PA Social History This patient has no known social history. Vital Signs Vital Name Observation Time Observation Value Comments height 2020-03-10 09:15:00 64 [in_us] weight 2020-03-10 09:15:00 186.6 [lb_av] bmi 2020-03-10 09:15:00 32.03 kg/m2 blood pressure systolic 2020-03-10 09:15:00 140 mm[Hg] blood pressure diastolic 2020-03-10 09:15:00 80 mm[Hg] height 2019-11-18 09:45:00 64 [in_us] weight 2019-11-18 09:45:00 186 [lb_av] bmi 2019-11-18 09:45:00 31.92 kg/m2 heart rate 2019-11-18 09:45:00 65 /min blood pressure systolic 2019-11-18 09:45:00 115 mm[Hg] blood pressure diastolic 2019-11-18 09:45:00 72 mm[Hg] height 2019-09-04 10:30:00 64 [in_us] weight 2019-09-04 10:30:00 199.3 [lb_av] bmi 2019-09-04 10:30:00 34.21 kg/m2 heart rate 2019-09-04 10:30:00 67 /min blood pressure systolic 2019-09-04 10:30:00 158 mm[Hg] blood pressure diastolic 2019-09-04 10:30:00 80 mm[Hg] height 2019-05-28 10:30:00 64 [in_us] weight 2019-05-28 10:30:00 193.8 [lb_av] bmi 2019-05-28 10:30:00 33.26 kg/m2 heart rate 2019-05-28 10:30:00 54 /min blood pressure systolic 2019-05-28 10:30:00 146 mm[Hg] blood pressure diastolic 2019-05-28 10:30:00 87 mm[Hg]
== END ==
LOC: RAD 07:07
PROVIDERS: ATTEND Internal Medicine Gastroenterology
DX: K70.30 Alcoholic cirrhosis of liver without ascites (principal); R16.0 Hepatomegaly, not elsewhere classified
CPT/HCPCS: 76705